=== PATIENT | male | born 1980 | race Caucasian/White ===

== ENCOUNTER 2022-10-27 09:57 | Inpatient (IN) ==
[2022-10-27] MEDS ORDERED: ACETAMINOPHEN 325 MG TAB PO PRN (10:13)
[2022-10-27] MEDS ORDERED: ONDANSETRON INJ 2 MG/ML 2 ML VIAL IV PRN (10:13)
--- NOTE | 2022-10-27 10:47 | History & Physical Report ---
Date of Service October 27, 2022 Assessment & Plan (1) Ulcerative colitis: (2) Vitamin D deficiency: Plan This is a 42-year-old male with PMH of ulcerative colitis on Entyvio (last received 09/21/22) who presents as a direct admission for UC flare. Ulcerative colitis flare Worsening UC symptoms over past 1-2 weeks including increased frequency of bloodly bowel movements and abd cramping despite prednisone taper Has been on Entyvio biologic treatment that has worked well until recently, per patient Tachycardic at 100 bpm on admission, WBC 12, hgb 14.8, plt 510, ESR 59, CRP and CMP pending Evaluated by GI concurrently - plan for IV Solu-medrol 20mg IV q8H, planning to transition to new biologic and outpatient scope next week. Diet as tolerated Will add LR gentle fluids if BP tolerates Vitamin D deficiency Recently dx as outpatient and started on weekly 50,000u capsules x 3 months DVT Ppx: SCDs Code status: FULL PCP: Hailee Dispo: Admitted to PCU, can transition to lower level of care tomorrow if appropriate Patient seen in collaboration with Dr. Bay. Please see addendum. I spent a total of 75 minutes coordinating, documenting, and providing care for this patient excluding time spent in the performance of separately billed services. History of Present Illness Chief Complaint: UC flare Primary Care Provider: Franky Stephen MD This is a 42-year-old male with PMH of ulcerative colitis on Entyvio (last received 09/21/22) who presents as a direct admission for UC flare. Patient with worsening UC symptoms over the past week or 2 despite prednisone taper and mesalamine enemas. CRP elevated at 83 on 10/23/22 and at that time patient experiencing up to 12 bloody bowel movements overnight with increased frequency and urgency from baseline with associated abdominal cramping. CRP downtrended to 49 on 10/26/22 after starting prednisone taper but still experiencing symptoms than baseline. Coordinated direct admission with GI office and Dr. Farnsworth for IV steroid treatment. Denies any fever or chills. No lightheadedness, dizziness, chest pain, shortness of breath, nausea, vomiting, dysuria. Only had 1 bloody bowel movement overnight, still feels like he is trending in the right direction. Recently noted to have low vitamin D levels and started on high dose weekly supplements x 3 months. Allergies Allergy/AdvReac Type Severity Reaction Status Date / Time Penicillins Allergy Intermediate hives Verified 10/08/13 00:44 Home Medications Medication Instructions Recorded Confirmed Type azelastine 137 mcg (0.1 %) nasal 1 spray intranasal BID PRN Allergy 10/27/22 10/27/22 History spray aerosol Symptoms ergocalciferol (vitamin D2) 1,250 50,000 unit PO WK 10/27/22 10/27/22 History mcg (50,000 unit) capsule fluticasone propionate 50 1 spray intranasal BID PRN Allergy 10/27/22 10/27/22 History mcg/actuation nasal Symptoms spray,suspension montelukast 10 mg tablet 10 mg PO DAILY 10/27/22 10/27/22 History prednisone 10 mg tablet 20 mg PO BID 10/27/22 10/27/22 History vedolizumab 300 mg intravenous 300 mg IV Q8WK 10/27/22 10/27/22 History solution (Entyvio) Past Med/Surg History Medical History (Updated 10/27/22 @ 12:59 by Dai Wall PA-C) Allergic rhinitis Immunosuppressed status Ulcerative colitis Vitamin D deficiency Surgical History (Updated 10/27/22 @ 12:59 by Dai Wall PA-C) H/O umbilical hernia repair Family History Other Hypertension Social History Smoking Status: Former smoker Hx Alcohol Use: No Hx Substance Use: Yes (Vapes marijuana occasionally, last 2 weeks ago) Last Used Substance Other:: Once a month Preferred Language: German Communication Ability: Effective 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 Physical Exam Physical Exam: Please see Dr. Bay's addendum for physical exam. Results & Data Results & Data Laboratory Results Short CBC 10/27/22 Range/Units 12:18 WBC 12.16 H (4.8-10.8) K/ul Hgb 14.8 (14.0-18.0) g/dl Hct 45.0 (42.0-52.0) % Plt Count 510 H (130-400) K/uL BMP 10/27/22 12:18 Sodium 137 Potassium 3.7 Chloride 103 Carbon Dioxide 25 BUN 18 Creatinine 0.95 Glucose 150 H Calcium 9.4 Liver Function 10/27/22 Range/Units 12:18 Total Bilirubin 0.5 (0.2-1.0) mg/dl AST 14 (13-39) U/L ALT 36 (7-52) U/L Alkaline Phosphatase 83 (34-104) U/L Albumin 4.0 (3.4-5.0) gm/dl Diagnostic Findings Chest X-Ray 10/27/22 10:13 XR chest 1V portable CLINICAL HISTORY: admission COMPARISON STUDY: No previous studies for comparison. FINDINGS: Lung volumes are normal. Lungs are clear. There is no pneumothorax or pleural effusion. Borderline enlargement of the cardiac silhouette. Mediastinal contours are normal. There is no evidence for pulmonary edema. IMPRESSION: No acute cardiopulmonary findings. ACT 112: Negative or not required by law. Electronically signed by: Eugene Richter M.D. 10/27/2022 12:44 PM ECG Additional Comments: EKG reviewed, sinus rhythm with sinus arrhythmia at 90 bpm Code Status & VTE Plan VTE Prophylaxis Plan VTE Prophylaxis will be ordered: Yes Supervising Physician Co-Signing Physician Notes History and physical exam performed by me notable for 42-year-old male with history of ulcerative colitis on Entyvio who presents as a direct admission for UC flare. Has been having worsening symptoms recently especially in the last week. Reports bloody diarrhea, generalized abd pain. Symptoms worse at night. Recent elevated CRP and was started on prednisone outpatient. On exam, General: Well hydrated, no acute distress Eyes: PERRL, conjunctivae normal, not pale, anicteric sclerae, EOM intact bilaterally ENMT: External ear and nose normal, oropharynx normal Respiratory: Normal respiratory effort, no respiratory distress, lungs clear to auscultation, no crackles and no wheezes Cardiovascular: RRR S1 S2. no murmur Gastrointestinal (Abdomen): Abdomen is not distended, soft, non-tender to palpation, no guarding, no palpable hepatosplenomegaly, normal bowel sounds Musculoskeletal: No pedal edema Neurologic: Alert and oriented x 3, No focal weakness, sensation grossly intact Psychiatric: Euthymic affect Get admission labs: CMP, CBC Get CRP GI consult Start on IV solumedrol 20mg q8h per GI recs. Other plans as detailed by Dai Armijo PA-C
[2022-10-27] MEDS ORDERED: methylPREDNISolone 20 MG in SYRINGE 0 ML IV SCH (11:45)
--- NOTE | 2022-10-27 12:46 | XRay Report ---
XR chest 1V portable CLINICAL HISTORY: admission COMPARISON STUDY: No previous studies for comparison. FINDINGS: Lung volumes are normal. Lungs are clear. There is no pneumothorax or pleural effusion. Bor derline enlargement of the cardiac silhouette. Mediastinal contours are normal. There is no evidence for pulmonary edema. IMPRESSION: No acute cardiopulmonary findings. ACT 112: Negative or not required by law. Electronically signed by: Eugene Richter M.D. 10/27/2022 12:44 PM
[2022-10-27 12:47] LABS: Basophils # (auto) 0.07 K/uL (0-0.2); Basophils % (auto) 0.6 %; Eosinophils # (auto) 0.11 K/uL (0-0.50); Eosinophils % (auto) 0.9 %; Hemoglobin 14.8 g/dl (14.0-18.0); Immature Granulocytes % (auto) 0.8 %; Lymphocytes # (auto) 1.46 K/uL (1.2-3.4); Mean Corpuscular Hemoglobin 29.4 pg (25.0-34.0); Mean Corpuscular Hgb Conc 32.9 g/dL (32.0-36.0); Mean Corpuscular Volume 89.3 fL (80.0-100.0); Mean Platelet Volume 9.2 fL (9.4-12.4); Monocytes # (auto) 0.67 K/uL (0.11-0.59); Monocytes % (auto) 5.5 %; Neutrophils # (auto) 9.75 K/uL (1.40-6.50); Neutrophils % (auto) 80.2 %; Platelet Count 510 K/uL (130-400); RDW Standard Deviation 45.5 fL (36.4-46.3); Red Blood Count 5.04 M/uL (4.70-6.10); White Blood Count 12.16 K/ul (4.8-10.8)
--- NOTE | 2022-10-27 12:58 | Gastrointestinal Consultation ---
Date of Consultation October 27, 2022 Assessment & Plan (1) Ulcerative colitis: Plan Failed OP tx of UC flare. - Stool for C-diff, GI pathogens - Prednisone 20mg IV Q8hrs. - Low residual diet. - Would consider IP colonoscopy if does not significantly improve w IV steroids. - If responds well to steroids, would consider DC in 2 days and will continue OP GI f/u w Dr. Farnsworth who will consider initiation of other biologic/small molecule to bring UC to remission. Supervising Physician Co-Signing Physician Notes I interviewed and examined pt, reviewed chart and labs. Pt appears well, but persistent diarrhea on oral steroids after 4 days. His CRP is falling, albumin, preserved, hgb WNL. Please recheck CRP 48 hours, diet as tolerated, solumedrol as above. Please place pt on DVT prophylaxis with lovenox. History of Present Illness Reason for Consultation: UC flare Requesting Physician: Dai Wall PA-C Attending Physician: Jackie Bay MD History of Present Illness Ms. Tres Covington is a 42 yr old male pt of Dr. Stephen w a hx of GERD, UC managed by Dr. Farnsworth, maintained on Entyvio, in flare for the past month, on prednisone 40mg daily as an OP x 6 days, passing a bloody BM every few hrs for days, including frequent night time wakenings. OP labs showing significant flare (CRP 83 and fecal calprotectin 3780 - normal is <50). He has slight improvement in the past 24 hrs but continues w significant symptoms. On arrival WBC 12, ESR 60, CRP 6. Mildly tachycardic at 98/min, also hypertensive at 150/101. He is awake, alert, oriented and otherwise hemodynamically stable w/o electrolyte disturbances. His most recent colonoscopy was in June w Lehman 2 colitis in left colon. Lehman 0 in proximal colon except for small patch of active inflammation at HF. Diminutive polyp. Allergies Allergy/AdvReac Type Severity Reaction Status Date / Time Penicillins Allergy Intermediate hives Verified 10/08/13 00:44 Home Medications Medication Instructions Recorded Confirmed Type azelastine 137 mcg (0.1 %) nasal 1 spray intranasal BID PRN Allergy 10/27/22 10/27/22 History spray aerosol Symptoms ergocalciferol (vitamin D2) 1,250 50,000 unit PO WK 10/27/22 10/27/22 History mcg (50,000 unit) capsule fluticasone propionate 50 1 spray intranasal BID PRN Allergy 10/27/22 10/27/22 History mcg/actuation nasal Symptoms spray,suspension montelukast 10 mg tablet 10 mg PO DAILY 10/27/22 10/27/22 History prednisone 10 mg tablet 20 mg PO BID 10/27/22 10/27/22 History vedolizumab 300 mg intravenous 300 mg IV Q8WK 10/27/22 10/27/22 History solution (Entyvio) Patient History Medical History (Updated 10/27/22 @ 12:59 by Dai Wall PA-C) Allergic rhinitis Immunosuppressed status Ulcerative colitis Vitamin D deficiency Surgical History (Updated 10/27/22 @ 12:59 by Dai Wall PA-C) H/O umbilical hernia repair Family History Other Hypertension Social History Smoking Status: Former smoker Hx Alcohol Use: No Hx Substance Use: Yes (Vapes marijuana occasionally, last 2 weeks ago) Last Used Substance Other:: Once a month Preferred Language: Luxembourgish Communication Ability: Effective 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 Beliefs That Will Affect Care: None Current Living Situation: Family Other Information That Helps Us Care for You: No Feels Safe at Home: Yes Safety Concerns: Feels Safe At This Time Assistive Devices: None Review of Systems Review of Systems: ROS: Gen: Denies weakness, fevers, weight loss Eyes: No eye redness, or pain, no recent vision changes Resp: No SOB, no cough Cardio: No palpitations/irregular beats, no chest pain GI: Asd per HPI, otherwise (-) : Denies pain on urination Skin: No jaundice, itching or new rashes Physical Exam Constitutional: WD/WN, vitals as above Eyes: PERRL, conjunctivae normal, anicteric sclerae ENMT: external ear and nose normal, oropharynx normal Neck: trachea midline, no thyromegaly Respiratory: normal respiratory effort, lungs clear to auscultation Cardiovascular: HR 96/min, regular rhythm, no murmurs Gastrointestinal (Abdomen): normal bowel sounds, soft, nontender, no hepatosplenomegaly Musculoskeletal: no cyanosis or clubbing, extremities motor strength 5/5 Skin: no rashes, warm and dry Neurologic: PERRL, EOMI, accommodation nl, no face palsy, no dysarthria Psychiatric: A+Ox3, euthymic affect Lymphatic: no cervical or axillary lymphadenopathy Results & Data Vital Signs (Past 12 Hours) Vital Signs Pulse Pulse Resp BP BP Pulse Ox O2 Del Method 10/27/22 12:00 98 H 16 149/101 H 99 Room Air 10/27/22 11:49 91 H 15 155/106 H 99 Room Air 10/27/22 11:44 95 H 17 155/106 H 100 Room Air Laboratory Results WBC 12, Hb 14, Hct 43, Plts 510, Na 137, K 3.7, Cl 103, CO2 25, BUN 18, Cr 0.95, glucose 150. Diagnostic Findings CXR: No acute cardiopulmonary findings.
[2022-10-27 13:00] LABS: BUN Creatinine Ratio 18.9 (10-20); Bilirubin,Total 0.5 mg/dl (0.2-1.0); C Reactive Protein 6.09 mg/dl (0-0.5); Calcium 9.4 mg/dl (8.6-10.3); Creatinine Clr Calc Pharmacy 127.1 ml/min; Est GFR (African American) 115.6 ml/min; Est GFR (Non-African American) 99.7 ml/min; Globulin 4.1 gm/dl (2.5-4.0); Potassium 3.7 mmol/L (3.5-5.1); Total Protein 8.1 gm/dl (6.0-8.3)
[2022-10-27] MEDS ORDERED: FLUTICASONE PROPIONATE NA SPR 16 GM BTL NAE PRN (13:07)
[2022-10-27] MEDS: methylPREDNISolone 20 MG in SYRINGE 0 ML IV SCH ×2 (13:09→20:38)
--- NOTE | 2022-10-27 16:48 | Electrocardiogram Report ---
Test Reason : Blood Pressure : / mmHG Vent. Rate : 090 BPM Atrial Rate : 090 BPM P-R Int : 130 ms QRS Dur : 094 ms QT Int : 360 ms P-R-T Axes : 039 078 034 degrees QTc Int : 440 ms Normal sinus rhythm with sinus arrhythmia Normal ECG No previous ECGs available Confirmed by Lowell Call ([id number]) on 10/27/2022 4:48:39 PM Referred By: Cheyenne Farnsworth Confirmed By:Lowell Call
--- NOTE | 2022-10-27 22:40 | Communication Note ---
Date of Service: October 27, 2022 Patient noted to have elevated since admission. SBP 140s to 160s. AP Situational hypertension Possible chronic BP elevation given cardiomegaly on CXR Initiate lisinopril
[2022-10-28] MEDS: lisinopril 2.5 MG TAB PO SCH ×2 (00:14→20:12)
[2022-10-28] MEDS: methylPREDNISolone 20 MG in SYRINGE 0 ML IV SCH ×3 (04:01→20:12)
[2022-10-28 05:18] LABS: Hematocrit (blood only) 42.4 % (42.0-52.0); Mean Corpuscular Hemoglobin 29.5 pg (25.0-34.0); Mean Corpuscular Volume 89.5 fL (80.0-100.0); Mean Platelet Volume 8.9 fL (9.4-12.4); Platelet Count 476 K/uL (130-400); RDW Coefficient of Variation 13.7 % (11.5-14.5); RDW Standard Deviation 44.6 fL (36.4-46.3); Red Blood Count 4.74 M/uL (4.70-6.10); White Blood Count 12.52 K/ul (4.8-10.8)
[2022-10-28 05:34] LABS: BUN Creatinine Ratio 21.1 (10-20); Calcium 8.5 mg/dl (8.6-10.3); Creatinine Clr Calc Pharmacy 134.1 ml/min; Est GFR (African American) 123.4 ml/min; Est GFR (Non-African American) 106.5 ml/min; Potassium 4.3 mmol/L (3.5-5.1)
--- NOTE | 2022-10-28 09:41 | Gastroenterology Progress Note ---
Date of Service October 28, 2022 Assessment & Plan (1) Ulcerative colitis: Plan: He is doing better and probably close to going home. Would wait until later today or tomorrow depending on how he is doing. A few more IV doses might be beneficial to him and he would like to at least wait until dose later today. If he goes home I would send him home on 30 mg prednisone daily with quick follow up with his primary GI. Admission and Anticipated Discharge Date Admission Date: October 27, 2022 Subjective Doing "much better". Stools less frequent and less blood seen. Last BM last night. Sees a big difference with IV steroids Physical Exam Physical Exam: He looks well Results & Data Vital Signs (Past 12 Hours) Vital Signs Temp Pulse Pulse Resp BP BP Pulse Ox 10/28/22 08:00 111 H 10/28/22 07:24 36.7 C 97 H 18 137/77 97 10/28/22 04:00 36.8 C 79 19 125/74 97 10/28/22 00:00 70 10/27/22 23:53 91 H 23 10/27/22 23:53 137/78 10/27/22 23:00 60 15 10/27/22 22:00 70 16 10/27/22 23:00 36.9 C 85 16 95 O2 Del Method 10/28/22 08:00 10/28/22 07:24 Room Air 10/28/22 04:00 Room Air 10/28/22 00:00 10/27/22 23:53 10/27/22 23:53 10/27/22 23:00 10/27/22 22:00 10/27/22 23:00 Room Air
[2022-10-28] MEDS: MONTELUKAST SODIUM 10 MG TABLET PO SCH (09:45)
--- NOTE | 2022-10-28 15:28 | Hospitalist Progress Note ---
Date of Service October 28, 2022 Assessment & Plan (1) Ulcerative colitis: (2) Vitamin D deficiency: Plan: Patient is a 42 yr male with H/O Ulcerative colitis on Entyvio (last received 09/21/22) who presents as a direct admission for UC flare. Ulcerative colitis flare Failed outpatient treatment Stools negative for C Diff Was on Entyvio Continue Solu-Medrol Tolerating diet Appreciate GI input Monitor CBC We will recheck CRP tomorrow Vitamin D deficiency Recently dx as outpatient and started on weekly 50,000u capsules x 3 months DVT Px: SCDs Code status: FULL CODE Admission and Anticipated Discharge Date Admission Date: October 27, 2022 Subjective Patient is seen and examined at bedside Abdominal pain much improved Diarrhea improving as well Reports minimal blood in stools this morning Discussed with Dr. Farnsworth today Denies any chest pain, dyspnea, dizziness, nausea, vomiting Tolerating diet No other complaints Review of Systems Review of Systems: All systems reviewed & are unremarkable except as noted in Subjective Physical Exam Physical Exam: Physical Exam: Vitals signs as noted above General Appearance:Moderately built and nourished, no apparent distress Head: normocephalic, Atraumatic Eyes: normal inspection, EOMI Neck: supple, Trachea midline Respiratory/Chest: Normal breath sounds, CTA, No accessory muscle use Cardiovascular: S1, S2, No murmur Abdomen/GI:Soft, Non tender, Bowel sounds present Extremities/Musculoskeletal:normal inspection, no edema Neurologic/Psych:AAOX3, grossly no focal neurological deficits Skin: normal color, warm Results & Data Results & Data Vital Signs (Past 12 Hours) Vital Signs Temp Pulse Pulse Resp BP Pulse Ox O2 Del Method 10/28/22 14:37 87 10/28/22 11:17 36.9 C 80 18 120/78 96 Room Air 10/28/22 08:00 111 H 10/28/22 07:24 36.7 C 97 H 18 137/77 97 Room Air 10/28/22 04:00 36.8 C 79 19 125/74 97 Room Air Laboratory Results Short CBC 10/28/22 Range/Units 04:56 WBC 12.52 H (4.8-10.8) K/ul Hgb 14.0 (14.0-18.0) g/dl Hct 42.4 (42.0-52.0) % Plt Count 476 H (130-400) K/uL BMP 10/28/22 04:56 Sodium 137 Potassium 4.3 Chloride 103 Carbon Dioxide 28 BUN 19 Creatinine 0.90 Glucose 135 H Calcium 8.5 L
[2022-10-29] MEDS: methylPREDNISolone 20 MG in SYRINGE 0 ML IV SCH ×2 (04:01→12:13)
[2022-10-29 05:05] LABS: Hematocrit (blood only) 41.8 % (42.0-52.0); Hemoglobin 13.9 g/dl (14.0-18.0); Mean Corpuscular Hemoglobin 29.4 pg (25.0-34.0); Mean Corpuscular Hgb Conc 33.3 g/dL (32.0-36.0); Mean Corpuscular Volume 88.4 fL (80.0-100.0); Mean Platelet Volume 9.2 fL (9.4-12.4); Platelet Count 492 K/uL (130-400); Red Blood Count 4.73 M/uL (4.70-6.10); White Blood Count 14.82 K/ul (4.8-10.8)
[2022-10-29 05:20] LABS: BUN Creatinine Ratio 22.5 (10-20); C Reactive Protein 2.75 mg/dl (0-0.5); Calcium 8.6 mg/dl (8.6-10.3); Creatinine Clr Calc Pharmacy 171.7 ml/min; Est GFR (Non-African American) 117.4 ml/min; Magnesium 2.2 mg/dl (1.7-2.4); Potassium 4.3 mmol/L (3.5-5.1)
[2022-10-29] MEDS: MONTELUKAST SODIUM 10 MG TABLET PO SCH (08:56)
--- NOTE | 2022-10-29 12:31 | Hospitalist Progress Note ---
Date of Service October 29, 2022 Assessment & Plan (1) Ulcerative colitis: (2) Vitamin D deficiency: Plan: Patient is a 42 yr male with H/O Ulcerative colitis on Entyvio (last received 09/21/22) who presents as a direct admission for UC flare. Ulcerative colitis flare Failed outpatient treatment Stools negative for C Diff Was on Entyvio Continue Solu-Medrol Tolerating diet Appreciate GI input Monitor CBC CRP trending down Leukocytosis likely due to steroids Discussed with Dr. Farnsworth today: Plan to discharge on prednisone tapering course Vitamin D deficiency Recently dx as outpatient and started on weekly 50,000u capsules x 3 months DVT Px: SCDs Code status: FULL CODE Admission and Anticipated Discharge Date Admission Date: October 27, 2022 Subjective Patient is seen and examined at bedside Patient states having to bowel movements with minimal blood Also reports minimal abdominal discomfort but otherwise feels well Denies any nausea, vomiting, chest pain, dyspnea, dizziness Discussed with gastroenterology Dr. Farnsworth today Tolerating diet Patient prefers to be discharged home today Review of Systems Review of Systems: All systems reviewed & are unremarkable except as noted in Subjective Physical Exam Physical Exam: Physical Exam: Vitals signs as noted above General Appearance:Moderately built and nourished, no apparent distress Head: normocephalic, Atraumatic Eyes: normal inspection, EOMI Neck: supple, Trachea midline Respiratory/Chest: Normal breath sounds, CTA, No accessory muscle use Cardiovascular: S1, S2, No murmur Abdomen/GI:Soft, Non tender, Bowel sounds present Extremities/Musculoskeletal:normal inspection, no edema Neurologic/Psych:AAOX3, grossly no focal neurological deficits Skin: normal color, warm Results & Data Results & Data Vital Signs (Past 12 Hours) Vital Signs Temp Pulse Pulse Resp BP Pulse Ox O2 Del Method 10/29/22 11:56 36.6 C 68 17 131/74 96 Room Air 10/29/22 08:00 97 H 10/29/22 07:32 36.8 C 97 H 17 137/81 98 Room Air 10/29/22 03:00 36.8 C 63 18 128/70 97 Room Air Laboratory Results Short CBC 10/29/22 Range/Units 04:15 WBC 14.82 H (4.8-10.8) K/ul Hgb 13.9 L (14.0-18.0) g/dl Hct 41.8 L (42.0-52.0) % Plt Count 492 H (130-400) K/uL BMP 10/29/22 04:15 Sodium 137 Potassium 4.3 Chloride 104 Carbon Dioxide 26 BUN 16 Creatinine 0.71 Glucose 119 H Calcium 8.6
--- NOTE | 2022-10-29 12:52 | Discharge Summary ---
Date of Service October 29, 2022 Admission HPI Per Admitting Provider Chief Complaint: UC flare Primary Care Provider: Franky Stephen MD This is a 42-year-old male with PMH of ulcerative colitis on Entyvio (last received 09/21/22) who presents as a direct admission for UC flare. Patient with worsening UC symptoms over the past week or 2 despite prednisone taper and mesalamine enemas. CRP elevated at 83 on 10/23/22 and at that time patient experiencing up to 12 bloody bowel movements overnight with increased frequency and urgency from baseline with associated abdominal cramping. CRP downtrended to 49 on 10/26/22 after starting prednisone taper but still experiencing symptoms than baseline. Coordinated direct admission with GI office and Dr. Farnsworth for IV steroid treatment. Denies any fever or chills. No lightheadedness, dizziness, chest pain, shortness of breath, nausea, vomiting, dysuria. Only had 1 bloody bowel movement overnight, still feels like he is trending in the right direction. Recently noted to have low vitamin D levels and started on high dose weekly supplements x 3 months. Admission Exam Per Admitting Provider On exam, General: Well hydrated, no acute distress Eyes: PERRL, conjunctivae normal, not pale, anicteric sclerae, EOM intact bilaterally ENMT: External ear and nose normal, oropharynx normal Respiratory: Normal respiratory effort, no respiratory distress, lungs clear to auscultation, no crackles and no wheezes Cardiovascular: RRR S1 S2. no murmur Gastrointestinal (Abdomen): Abdomen is not distended, soft, non-tender to palpation, no guarding, no palpable hepatosplenomegaly, normal bowel sounds Musculoskeletal: No pedal edema Neurologic: Alert and oriented x 3, No focal weakness, sensation grossly intact Psychiatric: Euthymic affect Principal Diagnosis Ulcerative colitis flare Discharge Data Allergies Allergy/AdvReac Type Severity Reaction Status Date / Time Penicillins Allergy Intermediate hives Verified 10/08/13 00:44 Consultations 10/27/22 10:13 Consult Gastroenterology Routine Procedures Performed Laboratory Results WBC 14.82 K/ul (4.8-10.8) H 10/29/22 04:15 RBC 4.73 M/uL (4.70-6.10) 10/29/22 04:15 Hgb 13.9 g/dl (14.0-18.0) L 10/29/22 04:15 Hct 41.8 % (42.0-52.0) L 10/29/22 04:15 MCV 88.4 fL (80.0-100.0) 10/29/22 04:15 MCH 29.4 pg (25.0-34.0) 10/29/22 04:15 MCHC 33.3 g/dL (32.0-36.0) 10/29/22 04:15 RDW Std Deviation 45.0 fL (36.4-46.3) 10/29/22 04:15 RDW Coeff of Cira 14.0 % (11.5-14.5) 10/29/22 04:15 Plt Count 492 K/uL (130-400) H 10/29/22 04:15 MPV 9.2 fL (9.4-12.4) L 10/29/22 04:15 Immature Gran % (Auto) 0.8 % 10/27/22 12:18 Neut % (Auto) 80.2 % 10/27/22 12:18 Lymph % (Auto) 12.0 % 10/27/22 12:18 Hodgeman % (Auto) 5.5 % 10/27/22 12:18 Eos % (Auto) 0.9 % 10/27/22 12:18 Baso % (Auto) 0.6 % 10/27/22 12:18 Neut # (Auto) 9.75 K/uL (1.40-6.50) H 10/27/22 12:18 Lymph # (Auto) 1.46 K/uL (1.2-3.4) 10/27/22 12:18 Hodgeman # (Auto) 0.67 K/uL (0.11-0.59) H 10/27/22 12:18 Eos # (Auto) 0.11 K/uL (0-0.50) 10/27/22 12:18 Baso # (Auto) 0.07 K/uL (0-0.2) 10/27/22 12:18 Immature Gran # (Auto) 0.10 K/uL (0.01-0.20) 10/27/22 12:18 ESR 59 mm/hr (0-15) H 10/27/22 12:18 Sodium 137 mmol/L (136-145) 10/29/22 04:15 Potassium 4.3 mmol/L (3.5-5.1) 10/29/22 04:15 Chloride 104 mmol/L (98-107) 10/29/22 04:15 Carbon Dioxide 26 mmol/L (21-32) 10/29/22 04:15 Anion Gap 7 (3-11) 10/29/22 04:15 BUN 16 mg/dl (6-23) 10/29/22 04:15 Creatinine 0.71 mg/dl (0.6-1.4) 10/29/22 04:15 Est Cr Clr Drug Dosing 171.7 ml/min 10/29/22 04:15 Est GFR ( Amer) 136.0 ml/min 10/29/22 04:15 Est GFR (Non-Af Amer) 117.4 ml/min 10/29/22 04:15 BUN/Creatinine Ratio 22.5 (10-20) H 10/29/22 04:15 Glucose 119 mg/dl (70-99(Fasting)) H 10/29/22 04:15 Calcium 8.6 mg/dl (8.6-10.3) 10/29/22 04:15 Magnesium 2.2 mg/dl (1.7-2.4) 10/29/22 04:15 Total Bilirubin 0.5 mg/dl (0.2-1.0) 10/27/22 12:18 AST 14 U/L (13-39) 10/27/22 12:18 ALT 36 U/L (7-52) 10/27/22 12:18 Alkaline Phosphatase 83 U/L (34-104) 10/27/22 12:18 C-Reactive Protein 2.75 mg/dl (0-0.5) H 10/29/22 04:15 Total Protein 8.1 gm/dl (6.0-8.3) 10/27/22 12:18 Albumin 4.0 gm/dl (3.4-5.0) 10/27/22 12:18 Globulin 4.1 gm/dl (2.5-4.0) H 10/27/22 12:18 Albumin/Globulin Ratio 1.0 (0.9-2) 10/27/22 12:18 TSH 0.943 uIu/ml (0.300-4.500) 10/28/22 04:56 Nasal Screen MRSA (PCR) Negative (Negative) 10/27/22 12:26 Stl C. diff Tox B Gene Negative Cdiff Gene (Neg) 10/28/22 04:30 Impressions Chest X-Ray 10/27/22 10:13 XR chest 1V portable CLINICAL HISTORY: admission COMPARISON STUDY: No previous studies for comparison. FINDINGS: Lung volumes are normal. Lungs are clear. There is no pneumothorax or pleural effusion. Borderline enlargement of the cardiac silhouette. Mediastinal contours are normal. There is no evidence for pulmonary edema. IMPRESSION: No acute cardiopulmonary findings. ACT 112: Negative or not required by law. Electronically signed by: Eugene Richter M.D. 10/27/2022 12:44 PM Hospital Course (1) Ulcerative colitis: (2) Vitamin D deficiency: Patient is a 42 yr male with H/O Ulcerative colitis on Entyvio (last received 09/21/22) who presents as a direct admission for UC flare. Ulcerative colitis flare Failed outpatient treatment Stools negative for C Diff Was on Entyvio Continue Solu-Medrol Tolerating diet Appreciate GI input Monitor CBC CRP trending down Leukocytosis likely due to steroids Discussed with Dr. Farnsworth today: Plan to discharge on prednisone tapering course Vitamin D deficiency Recently dx as outpatient and started on weekly 50,000u capsules x 3 months DVT Px: SCDs Code status: FULL CODE Total Time Total Time Spent Total Time Spent (In Minutes): 56 minutes Discharge Plan Discharge Items Patient Disposition: Home - Self-Care Reason For Visit: ULCERATIVE COLITIS Discharge Diagnosis: Ulcerative colitis flare Activity: Per Instructions section Exercise/Sports: Gradually increase as tolerated Non-emergency contact: Primary Care Provider Call non-emergency contact if: you have any medication questions, your symptoms worsen, your pain is concerning for you and you have a fever Follow-up/Referrals: Franky Stephen MD [Primary Care Provider] - Diet: Heart Healthy Addtl Attending Provider Instructions: Follow-up with your primary care physician in 1 week as advised Follow-up with your insole department worker Dr. Farnsworth in 2-3 weeks -- Complete the prednisone tapering course as recommended by your insole department worker. Prednisone tapering course: Start taking prednisone 60 mg daily for 5 days, then take 50 mg daily for 5 days, then take 40 mg daily for 7 days, then 30 mg daily for 7 days, then 20 mg daily for 7 days, then 15 mg daily for 7 days, then 10 mg daily for 7 days, then 5 mg daily for 7 days then stop. Seek immediate medical attention if your symptoms reoccur or worsen Please take all medications as instructed on discharge list below. Please call if you have any questions or problems. You can reach a [facility] hospitalist on duty at [facility] 24 hours a day by calling [phone] Pending Studies at Discharge: No Stand-Alone Forms: My [facility], Smoking Cessation Medications and DC Order Prescriptions: New lisinopril 2.5 mg Tablet 2.5 mg PO HS Qty: 30 0RF Continued azelastine 137 mcg (0.1 %) aerosol,spray 1 spray INTRANASAL BID PRN (Reason: Allergy Symptoms) fluticasone propionate 50 mcg/actuation spray,suspension 1 spray INTRANASAL BID PRN (Reason: Allergy Symptoms) montelukast 10 mg tablet 10 mg PO DAILY Entyvio 300 mg Recon Soln 300 mg IV Q8WK ergocalciferol (vitamin D2) 1,250 mcg (50,000 unit) capsule 50,000 unit PO WK Changed prednisone 10 mg tablet 10 mg PO UD Qty: 60 0RF Rx Instructions: Start taking prednisone 60 mg daily for 5 days, then take 50 mg daily for 5 days, then take 40 mg daily for 7 days, then 30 mg daily for 7 days, then 20 mg daily for 7 days, then 15 mg daily for 7 days, then 10 mg daily for 7 days, then 5 mg daily for 7 days then stop. Discharge Orders: Discharge Order (Routine); Ordered 10/29/22 Ordered By: Pacheco Ascencio Admission Data Admit Date/Time: 10/27/22 11:31 Attending Provider: Pacheco Ascencio Admit Provider: Jackie [place] I. Primary Care Provider: Franky Stephen Other Providers: Cheyenne Farnsworth
== END 2022-10-29 13:30 | disposition home or self-care (01) | DRG 387 ==
LOC: SUATTDRO 11:31 → 1E 11:31 → 4W 10-28 06:20

== ENCOUNTER 2023-05-03 13:46 | Inpatient (IN) ==
[2023-05-03] MEDS ORDERED: ACETAMINOPHEN 325 MG TAB PO PRN (13:59)
[2023-05-03] MEDS ORDERED: ONDANSETRON INJ 2 MG/ML 2 ML VIAL IV PRN (13:59)
[2023-05-03] MEDS ORDERED: MoRPHine SULFATE 4 MG/ML 1 ML CARP\\VIAL IV PRN (13:59)
[2023-05-03] MEDS ORDERED: methylPREDNISolone 20 MG in SYRINGE 0 ML IV SCH ×2 (14:00→14:15)
[2023-05-03] MEDS: LACTATED RINGER'S 1,000 ML IV SCH (16:31)
--- NOTE | 2023-05-03 16:39 | History & Physical Report ---
Date of Service May 03, 2023 Assessment & Plan (1) Ulcerative colitis: Plan: This is a 42-year-old male with PMHx of ulcerative colitis on Entyvio. He was previously treated with Rinvoq, mesalamine and rowasa. Pt with worsening GI symptoms as outpatient prompted GI services to request a direct admission. - Admit to med surg for ulcerative colitis flare, allow clear liquid diet as tolerated, antiemetic prn, pain control with MS IV - Consult GI - possible colonoscopy tomorrow - Solumedrol 20 mg IV Q8H and hold on antibiotics at this time per Dr. Farnsworth - LR at 125 ml/hr - Will obtain CT abd/pelvis w/contrast pending Cr./BUN is stable. - Check labs including cbc, cmp, lipase, lactate, Blood cultures x 2 - Check EKG (2) Vitamin D deficiency: Plan: - Chronic, stable, continue supplementation (3) Allergic rhinitis: Plan: - Cont flonase as needed DVT ppx: teds, scds, no chemical anticoagulation in the setting of UC flare Lines: 2 PIV CODE: Full code Dispo: From home, likely to remain in the hospital x 2 days Admission and Anticipated Discharge Date Admission Date: May 03, 2023 History of Present Illness Chief Complaint: Abdominal pain, increased bowel movements Primary Care Provider: Franky Stephen MD This is a 42-year-old male with PMHx of ulcerative colitis on Entyvio. He is most recently treated with Rinvoq, mesalamine and rowasa. Pt thought treatment was working very well, and last Sunday thought he was trending towards remission, and then his symptoms started to worsen again. Complaints include nausea, loss of appetite, fatigue, abdominal cramping which began to worsen on Sunday night. Pt has had issues with watery and blackened stool, with blood noted with each bowel movement to varying degrees. He is having upwards of 10-12 BMs daily. He has been following with Dr. Farnsworth as outpatient, and was referred to the hospital for direct admission by GI for treatment with IV steroids. Currently patient is doing ok, he has abdominal pain but is comfortable. C/o a headache for which he can have a tylenol now. Allergies Allergy/AdvReac Type Severity Reaction Status Date / Time Penicillins Allergy Intermediate hives Verified 10/08/13 00:44 Home Medications Medication Instructions Recorded Confirmed Type azelastine 137 mcg (0.1 %) nasal 1 spray intranasal BID PRN Allergy 10/27/22 05/03/23 History spray aerosol Symptoms ergocalciferol (vitamin D2) 1,250 50,000 unit PO WK 10/27/22 05/03/23 History mcg (50,000 unit) capsule fluticasone propionate 50 1 spray intranasal BID PRN Allergy 10/27/22 05/03/23 History mcg/actuation nasal Symptoms spray,suspension montelukast 10 mg tablet 10 mg PO DAILY 10/27/22 05/03/23 History mesalamine 1,000 mg rectal 1,000 mg MT HS 05/03/23 05/03/23 History suppository mesalamine 4 gram/60 mL enema 4 g MT HS 05/03/23 05/03/23 History upadacitinib 30 mg tablet,extended 30 mg PO DAILY 05/03/23 05/03/23 History release 24 hr (Rinvoq) Past Med/Surg History Medical History (Updated 05/03/23 @ 16:55 by Sayda López PA-C) Allergic rhinitis Immunosuppressed status Ulcerative colitis Vitamin D deficiency Surgical History H/O umbilical hernia repair Family History Other Hypertension Social History Smoking Status: Former smoker Hx Alcohol Use: No Hx Substance Use: No Preferred Language: Indonesian Communication Ability: Effective 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 Beliefs That Will Affect Care: None Current Living Situation: Spouse and Family Other Information That Helps Us Care for You: No Feels Safe at Home: Yes Safety Concerns: Feels Safe At This Time Assistive Devices: None Review of Systems Review of Systems: Constitutional: No fever, +sweats and chills with associated abdomingal cramping Eyes: No diplopia, no worsening or blurred vision ENT: normal hearing, no trouble swallowing Respiratory: No cough, sputum, dyspnea at rest or on exertion Cardiovascular: No chest pain, tightness or palpitations Abdomen: As per HPI Musculoskeletal: No joint pain, calf pain, swelling Neurologic: No weakness, numbness/tingling, or balance problems Psychiatric: No anxiety or depression Skin: No rash or itch Physical Exam Physical Exam: General: awake, alert, no apparent distress Head: Normocephalic, atraumatic ENT: PERRL, EOMI, no pharyngeal exudate, mucous membranes moist Chest: Clear to auscultation, on room air, no adventitious breath sounds Cardiac: Regular rate and rhythm, no murmur, no JVD, normal peripheral pulses, good capillary refill Abdominal: NABS x 4 quadrants, soft, nondistended, +tender to palpation, no rebound or guarding Extremities: Normal inspection, no peripheral edema or erythema, calfs nontender to palpation Psych: Normal mood and affect Neuro: AAO x 3, strength intact bilaterally and rated 5/5, no motor deficits, speech is clear, no peripheral sensory deficits Results & Data Results & Data Vital Signs (Past 12 Hours) Vital Signs Temp Resp BP Pulse Ox O2 Del Method 05/03/23 15:30 37.0 C 16 148/97 H 96 Room Air Laboratory Results 05/03/23 15:38 Aerobic Blood Culture - Pending Blood Anaerobic Blood Culture - Pending 05/03/23 15:38 Aerobic Blood Culture - Pending Blood Anaerobic Blood Culture - Pending 05/03/23 05/03/23 15:38 15:38 Lactate 1.2 Lipase 25 Code Status & VTE Plan Code Status Full code Supervising Physician Co-Signing Physician Notes I have seen and discussed the case with the collaborating RAYMOND. I agree with the above H&P. I have reviewed and confirmed the patients medical history, the findings on physical examination, and the patients diagnosis and treatment plan with Maribel ANDRADE and agree with the information documented. In short, Mr. Covington is a 42 year old gentleman with history for UC who is a direct admission for a UC flare. Patient has history of flares, requiring multiple trials of various agents to dharmesh symptoms. GI following. VS with hypertension in 140s. Labs from admission pending, lactate negative. Patient stable, but with recurrent UC flare, GI discussed intermediate manager options. Plan for daily CRP, low fiber diet with NPO at midnight for flex sig in am, CT AP with contrast. Rest of mplan as above.
--- NOTE | 2023-05-03 17:07 | Gastrointestinal Consultation ---
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 Typically exac by stress, approximately 3-4 x a yr, episodes last 1 week. At the end of March 2007, pt had 2 weeks of diarrhea. Placed on pred 40/30/20/10 and Asacol 800; he completed pred taper with almost complete resolution of sx. Colonoscopy 04/2007: Colitis to splenic flexure, fishmouth IC valve, nl TI; bx with eos in TI, robbins colitis. SBFT 04/28: nl SBS IBD-7 04/28: Pos UC. Capsule 06/28: No Crohn's Had second flare requiring prednisone 03/30. Symptoms relapsed when pred stopped, c scopy 05/30 showed mod severe L sided colitis. Was then maintained on 6 MP 100 and Lialda 2.4g, and was in remission for some time. Mild flare in October 2010, occurred after holding Lialda and 6 MP for 10 days. Treated with Cortenemas. In Apr 2011, he again had mild flare that followed period of medication non- compliance, resumed with oral/topical 5ASA. In May 2011, he had mild flare that required Cortenemas for 1 month. In Jul 2011, He had mild flare that resolved with 5 ASA. He underwent c scopy in Aug 2011, which showed aphthous ileal ulcers, fishmouth IC valve, mod robbins colitis with rectal sparing; bx showed robbins-colitis and ileitis. He was told to resume 6 MP, but he did not take until end of December; by 03/2012, he was on 6 MP 100 mg. Seen in July 2012 for diarrhea that began after going off 6 MP and Lialda. Also described epigastric abdominal pain. Labs showed lipase of 808 and ALT 115, with normal bili and alk phos. He was placed on prednisone and 5ASA oral/topical. He underwent MRCP that was normal except for steatosis, and LFT's normalized and lipase improved. His symptoms resolved with pred taper; cause of pancreatitis was not clearly identified, but 5 ASA was held. In October 2012, had mild flare, resolved with resumption of oral topical 5ASA. In January 2013, had mild flare. Resolved with 2 weeks of cortenemas. His lipase continued to be elevated in the spring, but was subsequently normalized. 5ASA was held, but lipase did not rise with resumption of 5 ASA in October 2012. Began 6 MP 50 mg once daily in Feb 2013. Subsequently increased to 75 at end of Mar 2013, and to 100 at end of Apr 2013. In November 2013, 6 MP was decreased from 100 to 50 mg due to mildly increased LFT's. His CRP was also 19, although he was asymptomatic. In December 2013, while on 50 6 MP, his LFT's were normal; his CRP remained increased. In January, a fecal calprotectin was markedly increased. He began to have mild cramping and increased stool frequency in February, and a colonoscopoy in 2013 showed moderately severe robbins-colitis. His C diff was positive. He was started on prednisone and Vanco. He resumed 6 MP 100 mg on Mar 11, and he completed Vanco course and tapered off pred. In late Apr 2014, had recurrent diarrhea that was not responsive to cortenemas; his C diff was positive, and he was begun on Vanco, as well as oral pred with good initial response. In Aug 2014, had recurrent urgency and bleeding. His C diff was positive, and he was placed on Vanco with good response. He had recurrent symptoms in mid September; C diff was not repeated, he and was placed on extended Vanco Taper. In Mar 2015, he had mild bloating. He took Rowasa once daily for 30 days and symptoms resolved. Cscopy in May 2015 showed Mild colitis, most prominent in left colon, as well as mild Terminal ileitis. In Aug 2015, he had mild diarrhea that did progressed despite resuming Rowasa. He was placed first on Cortenemas, and then on oral prednisone; his C diff was neg. He continued on oral pred and cortenemas until october, when pred taper was completed. In December 2015 he has mild lingering symptoms. Bowel movements twice, stool is loose with scant blood and mild abd cramping. Taking LIalda 4 a day, 6 MP 100, ROwasa 4 x /week. He had cscopy which showed left sided colitis. 6 MP levels were not done. He began Humira in late December; 6 MP was discontinued in mid January. He had a mild flare in March 2016, and was given Coretenemas twice daily for about 6 weeks with improvement in his symptoms. He had a moderate flare in Jun 2016, requiring prednisone for resolution. Humira levels were low, and dose was increased to once weekly. He resumed 6 MP 50 in Jul 2016. He had a cscopy in Jul 2017 which showed no active endoscopic/histologic disease. He discontinued 6 MP in Jan 2018. Cscopy 01/2019 showed no evidence of active colitis; biopsies were normal. He had a moderate flare in 09/2019 which resolved with Cortenemas. Cscopy 11/2019 showed mild disease in rectum and sigmoid. Bx = mild to mod active colitis in desc, sigmoid, and rectum, neg CMV. Humira levels checkec - AB > 20, Humira level 6.5. Began ENtyvio in mid January 2020, 6 MP in early February 2020. Had Shingles in mid February. Csocpy 05/12 with endoscopic/histologic remission. 6 MP discontinued 04/2021. Entyvio trough Jul 2020 low, noantibody. Csocpy 07/13 with Lehman 2 colitis in left colon. Entyvio changed to q 6 mos. Calpro markedly elevated 12 weeks after Entyvio dose increase. Had flare refractory to oral steroids with markedly elevated CRP in 11/12. Cscopy showed Lehman 2 robbins-colitis. Briefly hospitalized, received 6 week steroid taper and began Rinvoq 45 BID on 11/04/22. He flared with step down in Rinvoq dose, and was placed on topicals steroids and then oral/topical 5 asa with apparent improvement. He now is on 30 mg of prednisone, and admitted for 5-6 days of intractable diarrhea, abdominal pain, and bleeding. His stool frequency is 10-12 x a day. He has no fever. + early am awakening with need to BM. No n/v, diminished appetite with slight wieght loss. PE: Appears comfortable, tired HEENT: mildly dry, no thrush CV: RRR Resp: CTA Abd: soft Labs pending - outpt labs = CRP is recently 75, hgb and albumin ok with labs showing hemoconcentration. A/P: UC, flare - IV solumedrol 60 qd. Daily CRP. R/o C diff. KUB. low residue diet as tolerated. Flex sig tomorrow. Discussed intermediate options for management of colitis = Rinvoq 45 as maintenance, infliximab trial. Discussed possibility of surgery. Allergies Allergy/AdvReac Type Severity Reaction Status Date / Time Penicillins Allergy Intermediate hives Verified 10/08/13 00:44 Home Medications Medication Instructions Recorded Confirmed Type azelastine 137 mcg (0.1 %) nasal 1 spray intranasal BID PRN Allergy 10/27/22 05/03/23 History spray aerosol Symptoms ergocalciferol (vitamin D2) 1,250 50,000 unit PO WK 10/27/22 05/03/23 History mcg (50,000 unit) capsule fluticasone propionate 50 1 spray intranasal BID PRN Allergy 10/27/22 05/03/23 History mcg/actuation nasal Symptoms spray,suspension montelukast 10 mg tablet 10 mg PO DAILY 10/27/22 05/03/23 History vedolizumab 300 mg intravenous 300 mg IV Q8WK 10/27/22 05/03/23 History solution (Entyvio) mesalamine 1,000 mg rectal 1,000 mg AZ HS 05/03/23 05/03/23 History suppository mesalamine 4 gram/60 mL enema 4 g AZ HS 05/03/23 05/03/23 History upadacitinib 30 mg tablet,extended 30 mg PO DAILY 05/03/23 05/03/23 History release 24 hr (Rinvoq) Patient History Medical History (Updated 05/03/23 @ 16:55 by Sayda López PA-C) Allergic rhinitis Immunosuppressed status Ulcerative colitis Vitamin D deficiency Surgical History H/O umbilical hernia repair Family History Other Hypertension Social History Smoking Status: Former smoker Hx Alcohol Use: No Hx Substance Use: No Preferred Language: Finnish Communication Ability: Effective 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
[2023-05-03] MEDS ORDERED: AZELASTINE HCL 0.1% NASAL 200 SPRAYS/27,400 MCG BTL PRN (17:43)
[2023-05-03] MEDS ORDERED: FLUTICASONE PROPIONATE NA SPR 16 GM BTL NAE PRN (17:43)
[2023-05-03 18:14] LABS: Hematocrit (blood only) 37.9 % (42.0-52.0); Hemoglobin 12.5 g/dl (14.0-18.0); Mean Corpuscular Hemoglobin 29.1 pg (25.0-34.0); Mean Corpuscular Volume 88.3 fL (80.0-100.0); Mean Platelet Volume 8.7 fL (9.4-12.4); Platelet Count 546 K/uL (130-400); RDW Coefficient of Variation 12.9 % (11.5-14.5); RDW Standard Deviation 41.8 fL (36.4-46.3); Red Blood Count 4.29 M/uL (4.70-6.10); White Blood Count 20.59 K/ul (4.8-10.8)
[2023-05-03] MEDS: methylPREDNISolone 20 MG in SYRINGE 0 ML IV SCH ×2 (18:17→21:05)
[2023-05-03 18:30] LABS: Albumin Globulin Ratio 1.1 (0.9-2); Albumin Level 3.9 gm/dl (3.4-5.0); BUN Creatinine Ratio 14.6 (10-20); Bilirubin,Total 0.3 mg/dl (0.2-1.0); C Reactive Protein 10.42 mg/dl (0-0.5); Creatinine Clr Calc Pharmacy 125.1 ml/min; Est GFR (African American) 114.1 ml/min; Est GFR (Non-African American) 98.5 ml/min; Globulin 3.5 gm/dl (2.5-4.0); Potassium 3.3 mmol/L (3.5-5.1); Total Protein 7.4 gm/dl (6.0-8.3)
[2023-05-03 18:34] LABS: Basophils # (auto) 0.07 K/uL (0.00-0.20); Basophils % (auto) 0.3 %; Eosinophils # (auto) 0.54 K/uL (0.00-0.50); Eosinophils % (auto) 2.6 %; Immature Granulocytes # (auto) 0.11 K/uL (0.01-0.20); Immature Granulocytes % (auto) 0.5 %; Lymphocytes # (auto) 1.52 K/uL (1.20-3.40); Lymphocytes % (auto) 7.4 %; Monocytes # (auto) 1.49 K/uL (0.11-0.59); Monocytes % (auto) 7.2 %; Neutrophils # (auto) 16.86 K/uL (1.40-6.50)
[2023-05-03] MEDS ORDERED: POTASSIUM CHLORIDE CRTAB 20 MEQ TABCR PO STA (18:39)
[2023-05-03] MEDS ORDERED: ERGOCALCIFEROL 50,000 UNITS 1250 MCG CAP PO SCH (21:00)
[2023-05-03] MEDS: MoRPHine SULFATE 4 MG/ML 1 ML CARP\\VIAL IV PRN (21:05)
[2023-05-03 22:35] LABS: Adenovirus F 40/41 PCR Not Detected (NotDetected); Astrovirus PCR Not Detected (NotDetected); Campylobacter PCR Not Detected (NotDetected); Cryptosporidium PCR Not Detected (NotDetected); Cyclospora cayetanensis PCR Not Detected (NotDetected); Entamoeba histolytica PCR Not Detected (NotDetected); Enteroaggregative E.coli(EAEC) Not Detected (NotDetected); Enteropathogenic E.coli (EPEC) Not Detected (NotDetected); Enterotoxigenic E.coli (ETEC) Not Detected (NotDetected); Giardia lamblia PCR Not Detected (NotDetected); Norovirus GI/GII PCR Not Detected (NotDetected); Plesiomonas shigelloides PCR Not Detected (NotDetected); Rotavirus A PCR Not Detected (NotDetected); Salmonella PCR Not Detected (NotDetected); Sapovirus PCR Not Detected (NotDetected); Shiga-like Toxin E.coli (STEC) Not Detected (NotDetected); Shigella/Enteroinvasive E.coli Not Detected (NotDetected); Vibrio cholerae PCR Not Detected (NotDetected); Vibrio species PCR Not Detected (NotDetected); Yersinia enterocolitica PCR Not Detected (NotDetected)
[2023-05-04] MEDS: LACTATED RINGER'S 1,000 ML IV SCH (04:52)
[2023-05-04] MEDS: methylPREDNISolone 20 MG in SYRINGE 0 ML IV SCH ×3 (05:47→21:42)
[2023-05-04] MEDS: MoRPHine SULFATE 4 MG/ML 1 ML CARP\\VIAL IV PRN (05:47)
--- NOTE | 2023-05-04 07:36 | XRay Report ---
KUB HISTORY: Abdominal distention. COMPARISON: Abdomen and pelvis CT 10/08/2013. FINDINGS: The lung bases are clear. There are few gas-filled loops of small bowel which are borderlin e dilated measuring up to 3 cm in diameter. There is gas within the nondistended colon. No renal anastasia culi. No ureteral calculi. Calcifications in the deep pelvis likely represent phleboliths. No pneumop eritoneum or pneumatosis. IMPRESSION: A few borderline dilated gas-filled loops of small bowel within the abdomen. This is nonspecific but could be seen in the setting of a mild ileus or partial small bowel obstruction. ACT 112: Negative or not required by law. Electronically signed by: Flaco David M.D. 05/04/2023 7:35 AM
[2023-05-04 07:44] LABS: Hematocrit (blood only) 37.8 % (42.0-52.0); Hemoglobin 12.6 g/dl (14.0-18.0); Mean Corpuscular Hemoglobin 29.1 pg (25.0-34.0); Mean Corpuscular Hgb Conc 33.3 g/dL (32.0-36.0); Mean Corpuscular Volume 87.3 fL (80.0-100.0); Mean Platelet Volume 8.6 fL (9.4-12.4); Platelet Count 537 K/uL (130-400); RDW Coefficient of Variation 12.8 % (11.5-14.5); RDW Standard Deviation 41.5 fL (36.4-46.3); Red Blood Count 4.33 M/uL (4.70-6.10); White Blood Count 16.04 K/ul (4.8-10.8)
[2023-05-04] MEDS: MONTELUKAST SODIUM 10 MG TABLET PO SCH (08:03)
[2023-05-04 08:08] LABS: Albumin Globulin Ratio 1.1 (0.9-2); Albumin Level 3.8 gm/dl (3.4-5.0); Bilirubin,Total 0.3 mg/dl (0.2-1.0); C Reactive Protein 12.48 mg/dl (0-0.5); Calcium 9.2 mg/dl (8.6-10.3); Creatinine Clr Calc Pharmacy 158.5 ml/min; Est GFR (African American) 132.1 ml/min; Est GFR (Non-African American) 113.9 ml/min; Globulin 3.5 gm/dl (2.5-4.0); Magnesium 1.8 mg/dl (1.7-2.4); Total Protein 7.3 gm/dl (6.0-8.3)
--- NOTE | 2023-05-04 08:41 | Anesthesiology Consultation ---
Date of Service May 04, 2023 History Surgery Operation Date: 05/04/23 16:30 Proposed Procedures p Flexible Sigmoidoscopy Dr Mares - Betty Mares MD Height/Weight Height: 6 ft Weight: 99.79 kg Allergies Allergy/AdvReac Type Severity Reaction Status Date / Time Penicillins Allergy Intermediate hives Verified 10/08/13 00:44 Medications Home Medications Medication Instructions Recorded Confirmed Last Taken azelastine 137 mcg (0.1 %) nasal 1 spray intranasal BID PRN Allergy 10/27/22 05/03/23 Unknown spray aerosol Symptoms ergocalciferol (vitamin D2) 1,250 50,000 unit PO WK 10/27/22 05/03/23 Unknown mcg (50,000 unit) capsule fluticasone propionate 50 1 spray intranasal BID PRN Allergy 10/27/22 05/03/23 Unknown mcg/actuation nasal Symptoms spray,suspension montelukast 10 mg tablet 10 mg PO DAILY 10/27/22 05/03/23 10/27/22 0900 mesalamine 1,000 mg rectal 1,000 mg HI HS 05/03/23 05/03/23 Unknown suppository mesalamine 4 gram/60 mL enema 4 g HI HS 05/03/23 05/03/23 Unknown upadacitinib 30 mg tablet,extended 30 mg PO DAILY 05/03/23 05/03/23 Unknown release 24 hr (Rinvoq) Active Medications Generic Name Dose Route Start Last Admin Trade Name Freq PRN Reason Stop Dose Admin Acetaminophen 650 mg 05/03/23 13:59 05/03/23 17:25 Acetaminophen 325 Mg Tab PO 06/02/23 13:58 650 mg Q4H PRN Administration Moderate Pain (Scale 4, 5, 6) Ergocalciferol 50,000 units 05/03/23 21:00 05/03/23 20:04 Ergocalciferol 50,000 Units 1250 Mcg Cap PO 06/02/23 20:59 50,000 units Q7D@2100 JUDY Administration Lactated Ringer's 1,000 mls @ 80 mls/hr 05/03/23 14:00 05/04/23 04:52 Lr IV 06/02/23 13:59 80 mls/hr .[id number] JUDY Administration Methylprednisolone 20 mg/ 0.32 mls @ 1.5 mls/min 05/03/23 18:00 05/04/23 05:47 Syringe IV 06/02/23 17:59 1.5 mls/min Q8 JUDY Administration Montelukast Sodium 10 mg 05/04/23 09:00 05/04/23 08:03 Montelukast Sodium 10 Mg Tablet PO 06/03/23 08:59 10 mg DAILY JUDY Administration Morphine Sulfate 4 mg 05/03/23 19:33 05/04/23 05:47 Morphine Sulfate 4 Mg/Ml 1 Ml Carp\Vial IV 05/17/23 13:58 4 mg Q3H PRN Administration Pain Past Medical History Medical History (Updated 05/03/23 @ 16:55 by Sayda López PA-C) Allergic rhinitis Immunosuppressed status Ulcerative colitis Vitamin D deficiency Past Family History Family History Other Hypertension Past Surgical History Surgical History H/O umbilical hernia repair Social History Smoking Status: Former smoker Hx Alcohol Use: No Hx Substance Use: No substance use type: marijuana Last Used Substance Other:: Once a month Physical Exam Vital Signs Last Vital Signs Temp 36.7 C 05/04/23 07:02 Pulse 69 05/04/23 07:02 Resp 17 05/04/23 07:02 BP 108/63 05/04/23 07:02 Pulse Ox 97 05/04/23 07:02 O2 Del Method Room Air 05/04/23 07:02 Testing Laboratory Results 05/04/23 07:13 05/04/23 07:13 Electrocardiogram Date: 05/04/[address] ROUTINE RETRIEVAL Normal sinus rhythm Normal ECG When compared with ECG of 27-OCT-2022 11:51, No significant change was found 25mm/s10mm/[id number] 241 HDCID: 3Referred by: Danielle Kiser Unconfirmed Vent. rate 69 BPM HI interval 126 ms QRS duration 96 ms QT/QTc 386/413 ms
--- NOTE | 2023-05-04 08:45 | Anesthesiology Consultation ---
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 Consults Requested none Proposed Anesthesia Anesthesia Type: MAC History Surgery Operation Date: 05/04/23 16:30 Proposed Procedures p Flexible Sigmoidoscopy Dr Mares - Betty Mares MD Height/Weight Height: 6 ft Weight: 99.79 kg Allergies Allergy/AdvReac Type Severity Reaction Status Date / Time Penicillins Allergy Intermediate hives Verified 10/08/13 00:44 Medications Home Medications Medication Instructions Recorded Confirmed Last Taken azelastine 137 mcg (0.1 %) nasal 1 spray intranasal BID PRN Allergy 10/27/22 05/03/23 Unknown spray aerosol Symptoms ergocalciferol (vitamin D2) 1,250 50,000 unit PO WK 10/27/22 05/03/23 Unknown mcg (50,000 unit) capsule fluticasone propionate 50 1 spray intranasal BID PRN Allergy 10/27/22 05/03/23 Unknown mcg/actuation nasal Symptoms spray,suspension montelukast 10 mg tablet 10 mg PO DAILY 10/27/22 05/03/23 10/27/22 0900 mesalamine 1,000 mg rectal 1,000 mg IA HS 05/03/23 05/03/23 Unknown suppository mesalamine 4 gram/60 mL enema 4 g IA HS 05/03/23 05/03/23 Unknown upadacitinib 30 mg tablet,extended 30 mg PO DAILY 05/03/23 05/03/23 Unknown release 24 hr (Rinvoq) Active Medications Generic Name Dose Route Start Last Admin Trade Name Freq PRN Reason Stop Dose Admin Acetaminophen 650 mg 05/03/23 13:59 05/03/23 17:25 Acetaminophen 325 Mg Tab PO 06/02/23 13:58 650 mg Q4H PRN Administration Moderate Pain (Scale 4, 5, 6) Ergocalciferol 50,000 units 05/03/23 21:00 05/03/23 20:04 Ergocalciferol 50,000 Units 1250 Mcg Cap PO 06/02/23 20:59 50,000 units Q7D@2100 JUDY Administration Lactated Ringer's 1,000 mls @ 80 mls/hr 05/03/23 14:00 05/04/23 04:52 Lr IV 06/02/23 13:59 80 mls/hr .[id number] JUDY Administration Methylprednisolone 20 mg/ 0.32 mls @ 1.5 mls/min 05/03/23 18:00 05/04/23 05:47 Syringe IV 06/02/23 17:59 1.5 mls/min Q8 JUDY Administration Montelukast Sodium 10 mg 05/04/23 09:00 05/04/23 08:03 Montelukast Sodium 10 Mg Tablet PO 06/03/23 08:59 10 mg DAILY JUDY Administration Morphine Sulfate 4 mg 05/03/23 19:33 05/04/23 05:47 Morphine Sulfate 4 Mg/Ml 1 Ml Carp\Vial IV 05/17/23 13:58 4 mg Q3H PRN Administration Pain Past Medical History Medical History (Updated 05/04/23 @ 08:46 by Abhishek Lassiter MD) Allergic rhinitis Encounter for pre-operative examination Immunosuppressed status Ulcerative colitis Vitamin D deficiency Past Family History Family History Other Hypertension Past Surgical History Surgical History H/O umbilical hernia repair Social History Smoking Status: Former smoker Hx Alcohol Use: No Hx Substance Use: No substance use type: marijuana Last Used Substance Other:: Once a month Physical Exam Vital Signs Last Vital Signs Temp 36.7 C 05/04/23 07:02 Pulse 69 05/04/23 07:02 Resp 17 05/04/23 07:02 BP 108/63 05/04/23 07:02 Pulse Ox 97 05/04/23 07:02 O2 Del Method Room Air 05/04/23 07:02 Testing Laboratory Results 05/04/23 07:13 05/04/23 07:13 Electrocardiogram Date: 05/04/2304-May-2023 06:01:01 [facility] [place] ROUTINE RETRIEVAL Normal sinus rhythm Normal ECG When compared with ECG of 27-OCT-2022 11:51, No significant change was found 25mm/s10mm/[id number] 241 HDCID: 3Referred by: [employer] Unconfirmed Vent. rate 69 BPM IA interval 126 ms QRS duration 96 ms QT/QTc 386/413 ms Chest X-Ray Date: 10/27/22 XR chest 1V portable CLINICAL HISTORY: admission COMPARISON STUDY: No previous studies for comparison. FINDINGS: Lung volumes are normal. Lungs are clear. There is no pneumothorax or pleural effusion. Borderline enlargement of the cardiac silhouette. Mediastinal contours are normal. There is no evidence for pulmonary edema. IMPRESSION: No acute cardiopulmonary findings.
--- NOTE | 2023-05-04 10:34 | History & Physical Bridge Note ---
Date of Service May 04, 2023 History & Physical Bridge Note I have examined the patient, reviewed the History & Physical and in the interval since the performance of the History & Physical I have noted the following changes of clinical significance: no changes noted Flex sig Patient was explained in detail regarding risks, benefits, limitations and alternatives of the above endoscopic procedure. Risks of intravenous sedation used for procedure were also explained. Risks include, but not limited to perfo ration, bleeding, infection, respiratory distress, cardiac arrest and . Patient is also aware about the possibility of missed lesion. Patient's questions were answered. The patient verbalized understanding the information and agreed to undergo the procedure.
[2023-05-04] MEDS ORDERED: LIDOCAINE 2% 2 ML VIAL/AMP(20MG/ML) INFIL ONE (10:47)
[2023-05-04] MEDS ORDERED: MIDAZOLAM HCL 1 MG/ML 2ML VIAL ONE (10:47)
[2023-05-04] MEDS ORDERED: ONDANSETRON INJ 2 MG/ML 2 ML VIAL ONE (10:48)
[2023-05-04] MEDS ORDERED: PROPOFOL IV EMULSION 10 MG/ML 20 ML VIAL IV ONE ×2 (10:48)
--- NOTE | 2023-05-04 11:38 | GI REPORT ---
Patient Name: Tres Covington Procedure Date: 05/04/2023 10:47 AM Date of : 1980 Admit Type: Inpatient Age: 43 Gender: Male Attending MD: Betty Mares MD, Procedure: Flexible Sigmoidoscopy Providers: Betty Mares MD Referring MD: Humberto Cooley Md, Cheyenne Farnsworth MD Indications: Follow-up of ulcerative colitis Medicines: Propofol per Anesthesia Complications: No immediate complications. Estimated Blood Loss: Estimated blood loss: none. Procedure: Pre-Anesthesia Assessment: - Prior to the procedure, a History and Physical was performed, and patient medications, allergies and sensitivities were reviewed. The patient's tolerance of previous anesthesia was reviewed. - The risks and benefits of the procedure and the sedation options and risks were discussed with the patient. All questions were answered and informed consent was obtained. - Patient identification and proposed procedure were verified prior to the procedure by the physician and the nurse. The procedure was verified in the procedure room. - Pre-procedure physical examination revealed no contraindications to sedation. After obtaining informed consent, the endoscope was passed under direct vision. Throughout the procedure, the patient's blood pressure, pulse, and oxygen saturations were monitored continuously. The Endoscope was introduced through the anus and advanced to the descending colon. The flexible sigmoidoscopy was accomplished without difficulty. The patient tolerated the procedure well. The quality of the bowel preparation was good. Findings: Inflammation characterized by adherent blood, altered vascularity, erythema, friability and shallow ulcerations was found in a continuous and circumferential pattern from the rectum to the left sided colon. The inflammation was graded as Lehman Score 3 (severe, with spontaneous bleeding, ulcerations). Biopsies were taken with a cold forceps for histology. Verification of patient identification for the specimen was done by the physician and nurse using the patient's name and date. Impression: - Ulcerative colitis graded as Lehman Score 3. Biopsied. Recommendation: - Return [facility] to [facility] for [facility]. - Continue Steroids. Betty Mares MD 05/04/2023 11:37:40 AM This report has been signed electronically. Note Initiated On: 05/04/2023 10:47 AM Number of Addenda: 0 I attest to the content of the Intraoperative Record and orders documented therein, exceptions below {[id number]}
--- NOTE | 2023-05-04 12:20 | Anesthesiology Progress Note ---
Date of Service May 04, 2023 Anesthesia Post Procedure Vital Signs Vital Signs: Temp Pulse Resp BP Pulse Ox O2 Del Method 05/04/23 11:31 64 16 110/66 96 Room Air 05/04/23 11:16 69 16 131/68 99 Room Air 05/04/23 11:01 74 16 122/67 99 Room Air 05/04/23 09:57 36.7 C 66 16 123/76 96 Room Air 05/04/23 07:02 36.7 C 69 17 108/63 97 Room Air 05/03/23 20:12 37.4 C 79 18 149/84 H 96 Room Air 05/03/23 15:30 37.0 C 16 148/97 H 96 Room Air Pain Intensity Abdomen: Pain Intensity: 3 Transfer of Care Handoff Completed per policy Notes Mental Status: alert / awake / arousable and participated in evaluation Patient Amnestic to Procedure: Yes Nausea / Vomiting: adequately controlled Pain: adequately controlled Airway Patency, RR, SpO2: stable & adequate BP & HR: stable & adequate Hydration State: stable & adequate Anesthetic Complications: no major complications apparent
--- NOTE | 2023-05-04 13:44 | Hospitalist Progress Note ---
Date of Service May 04, 2023 Assessment & Plan (1) Ulcerative colitis: Plan: This is a 42-year-old male with PMHx of ulcerative colitis on Entyvio. He was previously treated with Rinvoq, mesalamine and rowasa. Pt with worsening GI symptoms as outpatient prompted GI services to request a direct admission. Flexible sigmoidoscopy done on 03/04 shows loredo score 3 inflammation. Inflammation characterized by adherent blood, altered vascularity, erythema, friability and shallow ulcerations. Labs reviewed; WBC slightly down trended. Hemoglobin is stable around 12.5. CRP elevated to 12.48 GI PCR panel and C. difficile negative -Continue on Solumedrol 20 mg IV Q8H -Monitor symptoms -Low residue diet (2) Vitamin D deficiency: Plan: - Chronic, stable, continue supplementation (3) Allergic rhinitis: Plan: - Cont flonase as needed DVT ppx: teds, scds, no chemical anticoagulation in the setting of UC flare Lines: 2 PIV CODE: Full code Dispo: From home, likely to remain in the hospital x 2 days Please note the above document was generated using voice recognition software. It may contain grammatical, syntax or spelling errors. Any formal questions or concerns about the content, text or information contained within the body of this dictation should be directly addressed to the provider for clarification Admission and Anticipated Discharge Date Admission Date: May 03, 2023 Subjective Patient seen and examined after sigmoidoscopy. He is sitting up on the bed; not in any distress. Review of Systems Review of Systems: All systems reviewed & are unremarkable except as noted in Subjective Physical Exam Physical Exam: Constitutional: Alert orient x3; not in any distress. Respiratory: normal respiratory effort, lungs clear to auscultation, no wheeze, rales, rhonchi. Normal insp/exp effort, no accessory muscle use Cardiovascular: RRR, no murmur, no edema Vessels: no JVD or carotid bruit Chest: normal inspection of chest Abdomen: Soft, nontender. Bowel sounds present. Musculoskeletal: no cyanosis or clubbing, extremities motor strength 5/5 Skin: no rashes, warm and dry normal turgor Neurologic: PERRL, EOMI, accommodation nl, no face palsy, no dysarthria CN's II- XI intact bilaterally and moves all extremities Psychiatric: A+Ox3, euthymic affect Results & Data Results & Data Vital Signs (Past 12 Hours) Vital Signs Temp Pulse Resp BP Pulse Ox O2 Del Method 05/04/23 11:31 64 16 110/66 96 Room Air 05/04/23 11:16 69 16 131/68 99 Room Air 05/04/23 11:01 74 16 122/67 99 Room Air 05/04/23 09:57 36.7 C 66 16 123/76 96 Room Air 05/04/23 07:02 36.7 C 69 17 108/63 97 Room Air Laboratory Results Laboratory Results WBC 16.04 K/ul (4.8-10.8) H 05/04/23 07:13 RBC 4.33 M/uL (4.70-6.10) L 05/04/23 07:13 Hgb 12.6 g/dl (14.0-18.0) L 05/04/23 07:13 Hct 37.8 % (42.0-52.0) L 05/04/23 07:13 MCV 87.3 fL (80.0-100.0) 05/04/23 07:13 MCH 29.1 pg (25.0-34.0) 05/04/23 07:13 MCHC 33.3 g/dL (32.0-36.0) 05/04/23 07:13 RDW Std Deviation 41.5 fL (36.4-46.3) 05/04/23 07:13 RDW Coeff of Cira 12.8 % (11.5-14.5) 05/04/23 07:13 Plt Count 537 K/uL (130-400) H 05/04/23 07:13 MPV 8.6 fL (9.4-12.4) L 05/04/23 07:13 Immature Gran % (Auto) 0.5 % 05/03/23 17:48 Neut % (Auto) 82.0 % 05/03/23 17:48 Lymph % (Auto) 7.4 % 05/03/23 17:48 Moca % (Auto) 7.2 % 05/03/23 17:48 Eos % (Auto) 2.6 % 05/03/23 17:48 Baso % (Auto) 0.3 % 05/03/23 17:48 Neut # (Auto) 16.86 K/uL (1.40-6.50) H 05/03/23 17:48 Lymph # (Auto) 1.52 K/uL (1.20-3.40) 05/03/23 17:48 Moca # (Auto) 1.49 K/uL (0.11-0.59) H 05/03/23 17:48 Eos # (Auto) 0.54 K/uL (0.00-0.50) H 05/03/23 17:48 Baso # (Auto) 0.07 K/uL (0.00-0.20) 05/03/23 17:48 Immature Gran # (Auto) 0.11 K/uL (0.01-0.20) 05/03/23 17:48 Sodium 137 mmol/L (136-145) 05/04/23 07:13 Potassium 4.0 mmol/L (3.5-5.1) D 05/04/23 07:13 Chloride 106 mmol/L (98-107) 05/04/23 07:13 Carbon Dioxide 25 mmol/L (21-32) 05/04/23 07:13 Anion Gap 6 (3-11) 05/04/23 07:13 BUN 9 mg/dl (6-23) 05/04/23 07:13 Creatinine 0.75 mg/dl (0.6-1.4) 05/04/23 07:13 Est Cr Clr Drug Dosing 158.5 ml/min 05/04/23 07:13 Est GFR ( Amer) 132.1 ml/min 05/04/23 07:13 Est GFR (Non-Af Amer) 113.9 ml/min 05/04/23 07:13 BUN/Creatinine Ratio 12.0 (10-20) 05/04/23 07:13 Glucose 131 mg/dl (70-99(Fasting)) H 05/04/23 07:13 Lactate 1.2 mmol/L (0.4-2.0) 05/03/23 15:38 Calcium 9.2 mg/dl (8.6-10.3) 05/04/23 07:13 Magnesium 1.8 mg/dl (1.7-2.4) 05/04/23 07:13 Total Bilirubin 0.3 mg/dl (0.2-1.0) 05/04/23 07:13 AST 12 U/L (13-39) L 05/04/23 07:13 ALT 13 U/L (7-52) 05/04/23 07:13 Alkaline Phosphatase 56 U/L (34-104) 05/04/23 07:13 C-Reactive Protein 12.48 mg/dl (0-0.5) H 05/04/23 07:13 Total Protein 7.3 gm/dl (6.0-8.3) 05/04/23 07:13 Albumin 3.8 gm/dl (3.4-5.0) 05/04/23 07:13 Globulin 3.5 gm/dl (2.5-4.0) 05/04/23 07:13 Albumin/Globulin Ratio 1.1 (0.9-2) 05/04/23 07:13 Lipase 25 U/L (11-82) 05/03/23 15:38 Stl C. cayetanensis PCR Not Detected (NotDetected) 05/03/23 20:50 Stool Rotavirus A PCR Not Detected (NotDetected) 05/03/23 20:50 Stl Adenov F 40/41 PCR Not Detected (NotDetected) 05/03/23 20:50 Stool Astrovirus (PCR) Not Detected (NotDetected) 05/03/23 20:50 Stool Campylobacter PCR Not Detected (NotDetected) 05/03/23 20:50 Stl C. diff Tox B Gene Negative Cdiff Gene (Neg) 05/03/23 20:50 Stool Cryptosporidium PCR Not Detected (NotDetected) 05/03/23 20:50 Stl E.coli Shiga Tox PCR Not Detected (NotDetected) 05/03/23 20:50 Stl Enterotoxigenic E PCR Not Detected (NotDetected) 05/03/23 20:50 Stool EPEC (PCR) Not Detected (NotDetected) 05/03/23 20:50 Stool EAEC (PCR) Not Detected (NotDetected) 05/03/23 20:50 Stl E. histolytica PCR Not Detected (NotDetected) 05/03/23 20:50 Stool Giardia Lamblia PCR Not Detected (NotDetected) 05/03/23 20:50 Stool Salmonella PCR Not Detected (NotDetected) 05/03/23 20:50 Stool Sapovirus (PCR) Not Detected (NotDetected) 05/03/23 20:50 Stl P. shigelloides PCR Not Detected (NotDetected) 05/03/23 20:50 Stl Shigella/EIEC PCR Not Detected (NotDetected) 05/03/23 20:50 St Y.enterocolitica PCR Not Detected (NotDetected) 05/03/23 20:50 Stool Vibrio (PCR) Not Detected (NotDetected) 05/03/23 20:50 Stl Vibrio cholerae PCR Not Detected (NotDetected) 05/03/23 20:50 Stl Norovirus GI/GII PCR Not Detected (NotDetected) 05/03/23 20:50 Impressions KUB X-Ray 05/03/23 18:36 KUB HISTORY: Abdominal distention. COMPARISON: Abdomen and pelvis CT 10/08/2013. FINDINGS: The lung bases are clear. There are few gas-filled loops of small bowel which are borderline dilated measuring up to 3 cm in diameter. There is gas within the nondistended colon. No renal calculi. No ureteral calculi. Calcifications in the deep pelvis likely represent phleboliths. No pneumoperitoneum or pneumatosis. IMPRESSION: A few borderline dilated gas-filled loops of small bowel within the abdomen. This is nonspecific but could be seen in the setting of a mild ileus or partial small bowel obstruction. ACT 112: Negative or not required by law. Electronically signed by: Flaco David M.D. 05/04/2023 7:35 AM
--- NOTE | 2023-05-04 14:52 | Electrocardiogram Report ---
Test Reason : Blood Pressure : / mmHG Vent. Rate : 069 BPM Atrial Rate : 069 BPM P-R Int : 126 ms QRS Dur : 096 ms QT Int : 386 ms P-R-T Axes : 042 075 045 degrees QTc Int : 413 ms Normal sinus rhythm Normal ECG When compared with ECG of 27-OCT-2022 11:51, No significant change was found Confirmed by Pierre Chandler ([id number]) on 05/04/2023 2:52:20 PM Referred By: Danielle Kiser Confirmed By:Pierre Chandler
--- NOTE | 2023-05-04 17:32 | Gastroenterology Progress Note ---
Date of Service May 04, 2023 Assessment & Plan Admission and Anticipated Discharge Date Admission Date: May 03, 2023 Subjective Pt with subjective improvement today - no diarrhea, improved energy. CRP increased today after hydration. Cont Solumedrol 60 over weekend, if cont to improve anticipate d/c on pred 60 + Rinvoq 30 on Sunday or Sunday. If CMV negative, plan to increase Rinvoq to 45 as maintenance. Results & Data Vital Signs (Past 12 Hours) Vital Signs Temp Pulse Resp BP Pulse Ox O2 Del Method 05/04/23 14:59 36.9 C 90 16 130/85 97 Room Air 05/04/23 11:31 64 16 110/66 96 Room Air 05/04/23 11:16 69 16 131/68 99 Room Air 05/04/23 11:01 74 16 122/67 99 Room Air 05/04/23 09:57 36.7 C 66 16 123/76 96 Room Air 05/04/23 07:02 36.7 C 69 17 108/63 97 Room Air
--- NOTE | 2023-05-04 18:06 | Hospitalist Progress Note ---
Date of Service May 04, 2023 Assessment & Plan (1) Ulcerative colitis: Plan: This is a 42-year-old male with PMHx of ulcerative colitis on Entyvio. He was previously treated with Rinvoq, mesalamine and rowasa. Pt with worsening GI symptoms as outpatient prompted GI services to request a direct admission. Flexible sigmoidoscopy 05/04 shows loredo score 3 inflammation. Inflammation characterized by adherent blood, altered vascularity, erythema, friability and shallow ulcerations (similar to February report) Continue on Solumedrol 20 mg IV Q8H Per GI, if cont to improve anticipate d/c on pred 60 + Rinvoq 30 on Sunday or Sunday. If CMV negative, plan to increase Rinvoq to 45 as maintenance Continue low residue diet Daily labs (2) Vitamin D deficiency: Plan: Chronic, stable, continue supplementation (3) Allergic rhinitis: Plan: Cont flonase as needed DVT ppx: teds, scds, no chemical anticoagulation in the setting of UC flare Lines: 2 PIV CODE: Full code Dispo: From home, likely to remain in the hospital x 2 days Admission and Anticipated Discharge Date Admission Date: May 03, 2023 Supervising Physician Co-Signing Physician Notes Patient seen and examined independently. Discussed with above provider. Continue on IV steroid for possible colitis flareup Possible transition to p.o. steroids in next few days after symptom control. Subjective Seen and examined in 375-2 today following endoscopy. Feeling much improved with IV steroids. Denies any diarrhea since procedure today (was having 8-10 episodes during flare prior to arrival). No other additional sx. No F/C, lightheadedness, CP, SOB, N/V, dysuria. Review of Systems Review of Systems: At least ten systems reviewed and negative except as noted in the HPI. Physical Exam Physical Exam: Gen: WD/WN, NAD, sitting up in bed working on computer, A&Ox3 HEENT: Normocephalic, atraumatic, conjunctivae moist, sclerae anicteric, mucous membranes moist Lung: Clear to Auscultation bilaterally, no wheezes/rales/rhonchi Heart: Regular rate, regular rhythm, no murmurs, rubs, or gallops Abdomen: Soft, mild distension and RLQ/LLQ TTP, +BS x 4 Extremities: no edema Skin: Warm, no rash Results & Data Results & Data Vital Signs (Past 12 Hours) Vital Signs Temp Pulse Resp BP Pulse Ox O2 Del Method 05/04/23 14:59 36.9 C 90 16 130/85 97 Room Air 05/04/23 11:31 64 16 110/66 96 Room Air 05/04/23 11:16 69 16 131/68 99 Room Air 05/04/23 11:01 74 16 122/67 99 Room Air 05/04/23 09:57 36.7 C 66 16 123/76 96 Room Air 05/04/23 07:02 36.7 C 69 17 108/63 97 Room Air Laboratory Results Short CBC 05/03/23 05/04/23 Range/Units 17:48 07:13 WBC 20.59 H 16.04 H (4.8-10.8) K/ul Hgb 12.5 L 12.6 L (14.0-18.0) g/dl Hct 37.9 L 37.8 L (42.0-52.0) % Plt Count 546 H 537 H (130-400) K/uL BMP 05/03/23 05/04/23 17:48 07:13 Sodium 137 137 Potassium 3.3 L 4.0 D Chloride 106 106 Carbon Dioxide 25 25 BUN 14 9 Creatinine 0.96 0.75 Glucose 117 H 131 H Calcium 9.0 9.2 Liver Function 05/03/23 05/04/23 Range/Units 17:48 07:13 Total Bilirubin 0.3 0.3 (0.2-1.0) mg/dl AST 14 12 L (13-39) U/L ALT 14 13 (7-52) U/L Alkaline Phosphatase 57 56 (34-104) U/L Albumin 3.9 3.8 (3.4-5.0) gm/dl Diagnostic Findings KUB X-Ray 05/03/23 18:36 KUB HISTORY: Abdominal distention. COMPARISON: Abdomen and pelvis CT 10/08/2013. FINDINGS: The lung bases are clear. There are few gas-filled loops of small bowel which are borderline dilated measuring up to 3 cm in diameter. There is gas within the nondistended colon. No renal calculi. No ureteral calculi. Calcifications in the deep pelvis likely represent phleboliths. No pneumoperitoneum or pneumatosis. IMPRESSION: A few borderline dilated gas-filled loops of small bowel within the abdomen. This is nonspecific but could be seen in the setting of a mild ileus or partial small bowel obstruction. ACT 112: Negative or not required by law. Electronically signed by: Flaco David M.D. 05/04/2023 7:35 AM
[2023-05-05] MEDS: methylPREDNISolone 20 MG in SYRINGE 0 ML IV SCH ×3 (05:48→21:11)
[2023-05-05 08:02] LABS: Basophils # (auto) 0.05 K/uL (0.00-0.20); Basophils % (auto) 0.3 %; Eosinophils # (auto) 0.02 K/uL (0.00-0.50); Eosinophils % (auto) 0.1 %; Hematocrit (blood only) 38.5 % (42.0-52.0); Hemoglobin 12.5 g/dl (14.0-18.0); Immature Granulocytes % (auto) 0.6 %; Lymphocytes # (auto) 0.96 K/uL (1.20-3.40); Lymphocytes % (auto) 5.4 %; Mean Corpuscular Hemoglobin 28.9 pg (25.0-34.0); Mean Corpuscular Hgb Conc 32.5 g/dL (32.0-36.0); Mean Corpuscular Volume 89.1 fL (80.0-100.0); Mean Platelet Volume 8.9 fL (9.4-12.4); Monocytes # (auto) 1.32 K/uL (0.11-0.59); Monocytes % (auto) 7.5 %; Neutrophils # (auto) 15.24 K/uL (1.40-6.50); Neutrophils % (auto) 86.1 %; Platelet Count 563 K/uL (130-400); RDW Coefficient of Variation 12.9 % (11.5-14.5); RDW Standard Deviation 42.4 fL (36.4-46.3); Red Blood Count 4.32 M/uL (4.70-6.10); White Blood Count 17.69 K/ul (4.8-10.8)
[2023-05-05 08:28] LABS: C Reactive Protein 8.56 mg/dl (0-0.5); Calcium 9.5 mg/dl (8.6-10.3); Creatinine Clr Calc Pharmacy 148.6 ml/min; Est GFR (African American) 128.6 ml/min; Potassium 4.1 mmol/L (3.5-5.1)
[2023-05-05] MEDS: MONTELUKAST SODIUM 10 MG TABLET PO SCH (08:47)
--- NOTE | 2023-05-05 09:22 | Gastroenterology Progress Note ---
Date of Service May 05, 2023 Assessment & Plan (1) Ulcerative colitis: Plan: Seems to be improving. Likely to go home tomorrow or Sunday but I think most likely Sunday. Admission and Anticipated Discharge Date Admission Date: May 03, 2023 Subjective Doing better. Pain and cramps are gone. Blood is less. Had three BM's so far today "just starting to get substance to them" Physical Exam Physical Exam: He looks well Constitutional: WD/WN, vitals as above Results & Data Vital Signs (Past 12 Hours) Vital Signs Temp Pulse Resp BP Pulse Ox O2 Del Method 05/05/23 07:30 36.6 C 63 16 132/83 96 Room Air
--- NOTE | 2023-05-05 13:55 | Hospitalist Progress Note ---
Date of Service May 05, 2023 Assessment & Plan (1) Ulcerative colitis: Plan: This is a 42-year-old male with PMHx of ulcerative colitis on Entyvio. He was previously treated with Rinvoq, mesalamine and rowasa. Pt with worsening GI symptoms as outpatient prompted GI services to request a direct admission. Flexible sigmoidoscopy 05/04 shows loredo score 3 inflammation. Inflammation characterized by adherent blood, altered vascularity, erythema, friability and shallow ulcerations (similar to February report) Continue on Solumedrol 20 mg IV Q8H Per GI, if cont to improve anticipate d/c on pred 60 + Rinvoq 30 in next few days. If CMV negative, plan to increase Rinvoq to 45 as maintenance Continue low residue diet Daily CBC, CRP. Slight improvement in the CRP noted today. (2) Vitamin D deficiency: Plan: Chronic, stable, continue supplementation (3) Allergic rhinitis: Plan: Cont flonase as needed DVT ppx: teds, scds, Lines: 2 PIV CODE: Full code Dispo: From home, likely to remain in the hospital x 2 days. Continues to be hospitalized due to severe ulcerative colitis flare-up. Please note the above document was generated using voice recognition software. It may contain grammatical, syntax or spelling errors. Any formal questions or concerns about the content, text or information contained within the body of this dictation should be directly addressed to the provider for clarification Admission and Anticipated Discharge Date Admission Date: May 03, 2023 Subjective Patient seen and examined at bedside. He is comfortably sitting up on the bed; not in distress. 2 bowel movements so far; slightly formed. Review of Systems Review of Systems: All systems reviewed & are unremarkable except as noted in Subjective Physical Exam Physical Exam: Constitutional: Alert orient x3; not in any distress. Respiratory: normal respiratory effort, lungs clear to auscultation, no wheeze, rales, rhonchi. Normal insp/exp effort, no accessory muscle use Cardiovascular: RRR, no murmur, no edema Vessels: no JVD or carotid bruit Chest: normal inspection of chest Abdomen: Soft, nontender. Bowel sounds present. Musculoskeletal: no cyanosis or clubbing, extremities motor strength 5/5 Skin: no rashes, warm and dry normal turgor Neurologic: PERRL, EOMI, accommodation nl, no face palsy, no dysarthria CN's II- XI intact bilaterally and moves all extremities Psychiatric: A+Ox3, euthymic affect Results & Data Results & Data Vital Signs (Past 12 Hours) Vital Signs Temp Pulse Resp BP Pulse Ox O2 Del Method 05/05/23 07:30 36.6 C 63 16 132/83 96 Room Air Laboratory Results Laboratory Results WBC 17.69 K/ul (4.8-10.8) H 05/05/23 07:11 RBC 4.32 M/uL (4.70-6.10) L 05/05/23 07:11 Hgb 12.5 g/dl (14.0-18.0) L 05/05/23 07:11 Hct 38.5 % (42.0-52.0) L 05/05/23 07:11 MCV 89.1 fL (80.0-100.0) 05/05/23 07:11 MCH 28.9 pg (25.0-34.0) 05/05/23 07:11 MCHC 32.5 g/dL (32.0-36.0) 05/05/23 07:11 RDW Std Deviation 42.4 fL (36.4-46.3) 05/05/23 07:11 RDW Coeff of Cira 12.9 % (11.5-14.5) 05/05/23 07:11 Plt Count 563 K/uL (130-400) H 05/05/23 07:11 MPV 8.9 fL (9.4-12.4) L 05/05/23 07:11 Immature Gran % (Auto) 0.6 % 05/05/23 07:11 Neut % (Auto) 86.1 % 05/05/23 07:11 Lymph % (Auto) 5.4 % 05/05/23 07:11 [place] % (Auto) 7.5 % 05/05/23 07:11 Eos % (Auto) 0.1 % 05/05/23 07:11 Baso % (Auto) 0.3 % 05/05/23 07:11 Neut # (Auto) 15.24 K/uL (1.40-6.50) H 05/05/23 07:11 Lymph # (Auto) 0.96 K/uL (1.20-3.40) L 05/05/23 07:11 [place] # (Auto) 1.32 K/uL (0.11-0.59) H 05/05/23 07:11 Eos # (Auto) 0.02 K/uL (0.00-0.50) 05/05/23 07:11 Baso # (Auto) 0.05 K/uL (0.00-0.20) 05/05/23 07:11 Immature Gran # (Auto) 0.10 K/uL (0.01-0.20) 05/05/23 07:11 Sodium 141 mmol/L (136-145) 05/05/23 07:11 Potassium 4.1 mmol/L (3.5-5.1) 05/05/23 07:11 Chloride 106 mmol/L (98-107) 05/05/23 07:11 Carbon Dioxide 29 mmol/L (21-32) 05/05/23 07:11 Anion Gap 6 (3-11) 05/05/23 07:11 BUN 12 mg/dl (6-23) 05/05/23 07:11 Creatinine 0.80 mg/dl (0.6-1.4) 05/05/23 07:11 Est Cr Clr Drug Dosing 148.6 ml/min 05/05/23 07:11 Est GFR ( Amer) 128.6 ml/min 05/05/23 07:11 Est GFR (Non-Af Amer) 111.0 ml/min 05/05/23 07:11 BUN/Creatinine Ratio 15.0 (10-20) 05/05/23 07:11 Glucose 126 mg/dl (70-99(Fasting)) H 05/05/23 07:11 Lactate 1.2 mmol/L (0.4-2.0) 05/03/23 15:38 Calcium 9.5 mg/dl (8.6-10.3) 05/05/23 07:11 Magnesium 1.8 mg/dl (1.7-2.4) 05/04/23 07:13 Total Bilirubin 0.3 mg/dl (0.2-1.0) 05/04/23 07:13 AST 12 U/L (13-39) L 05/04/23 07:13 ALT 13 U/L (7-52) 05/04/23 07:13 Alkaline Phosphatase 56 U/L (34-104) 05/04/23 07:13 C-Reactive Protein 8.56 mg/dl (0-0.5) H 05/05/23 07:11 Total Protein 7.3 gm/dl (6.0-8.3) 05/04/23 07:13 Albumin 3.8 gm/dl (3.4-5.0) 05/04/23 07:13 Globulin 3.5 gm/dl (2.5-4.0) 05/04/23 07:13 Albumin/Globulin Ratio 1.1 (0.9-2) 05/04/23 07:13 Lipase 25 U/L (11-82) 05/03/23 15:38 Stl C. cayetanensis PCR Not Detected (NotDetected) 05/03/23 20:50 Stool Rotavirus A PCR Not Detected (NotDetected) 05/03/23 20:50 Stl Adenov F 40/41 PCR Not Detected (NotDetected) 05/03/23 20:50 Stool Astrovirus (PCR) Not Detected (NotDetected) 05/03/23 20:50 Stool Campylobacter PCR Not Detected (NotDetected) 05/03/23 20:50 Stl C. diff Tox B Gene Negative Cdiff Gene (Neg) 05/03/23 20:50 Stool Cryptosporidium PCR Not Detected (NotDetected) 05/03/23 20:50 Stl E.coli Shiga Tox PCR Not Detected (NotDetected) 05/03/23 20:50 Stl Enterotoxigenic E PCR Not Detected (NotDetected) 05/03/23 20:50 Stool EPEC (PCR) Not Detected (NotDetected) 05/03/23 20:50 Stool EAEC (PCR) Not Detected (NotDetected) 05/03/23 20:50 Stl E. histolytica PCR Not Detected (NotDetected) 05/03/23 20:50 Stool Giardia Lamblia PCR Not Detected (NotDetected) 10 20:50 Stool Salmonella PCR Not Detected (NotDetected) 05/03/23 20:50 Stool Sapovirus (PCR) Not Detected (NotDetected) 05/03/23 20:50 Stl P. shigelloides PCR Not Detected (NotDetected) 05/03/23 20:50 Stl Shigella/EIEC PCR Not Detected (NotDetected) 05/03/23 20:50 St Y.enterocolitica PCR Not Detected (NotDetected) 05/03/23 20:50 Stool Vibrio (PCR) Not Detected (NotDetected) 05/03/23 20:50 Stl Vibrio cholerae PCR Not Detected (NotDetected) 05/03/23 20:50 Stl Norovirus GI/GII PCR Not Detected (NotDetected) 05/03/23 20:50 Impressions KUB X-Ray 05/03/23 18:36 KUB HISTORY: Abdominal distention. COMPARISON: Abdomen and pelvis CT 10/08/2013. FINDINGS: The lung bases are clear. There are few gas-filled loops of small bowel which are borderline dilated measuring up to 3 cm in diameter. There is gas within the nondistended colon. No renal calculi. No ureteral calculi. Calcifications in the deep pelvis likely represent phleboliths. No pneumoperitoneum or pneumatosis. IMPRESSION: A few borderline dilated gas-filled loops of small bowel within the abdomen. This is nonspecific but could be seen in the setting of a mild ileus or partial small bowel obstruction. ACT 112: Negative or not required by law. Electronically signed by: Flaco David M.D. 05/04/2023 7:35 AM
[2023-05-05] MEDS ORDERED: MoRPHine SULFATE 4 MG/ML 1 ML CARP\\VIAL IV PRN (15:18)
[2023-05-05] MEDS: RINVOQ 30 MG PO SCH (15:46)
[2023-05-06] MEDS: methylPREDNISolone 20 MG in SYRINGE 0 ML IV SCH ×3 (06:34→21:50)
[2023-05-06 07:49] LABS: Basophils # (auto) 0.03 K/uL (0.00-0.20); Basophils % (auto) 0.2 %; Eosinophils # (auto) 0.02 K/uL (0.00-0.50); Eosinophils % (auto) 0.1 %; Hematocrit (blood only) 36.6 % (42.0-52.0); Hemoglobin 11.9 g/dl (14.0-18.0); Immature Granulocytes # (auto) 0.11 K/uL (0.01-0.20); Immature Granulocytes % (auto) 0.8 %; Lymphocytes # (auto) 1.44 K/uL (1.20-3.40); Mean Corpuscular Hgb Conc 32.5 g/dL (32.0-36.0); Mean Corpuscular Volume 89.1 fL (80.0-100.0); Mean Platelet Volume 9.2 fL (9.4-12.4); Monocytes # (auto) 1.27 K/uL (0.11-0.59); Monocytes % (auto) 8.8 %; Neutrophils % (auto) 80.1 %; Platelet Count 554 K/uL (130-400); RDW Coefficient of Variation 13.1 % (11.5-14.5); RDW Standard Deviation 42.8 fL (36.4-46.3); Red Blood Count 4.11 M/uL (4.70-6.10); White Blood Count 14.47 K/ul (4.8-10.8)
[2023-05-06 08:06] LABS: BUN Creatinine Ratio 18.9 (10-20); C Reactive Protein 4.06 mg/dl (0-0.5); Creatinine Clr Calc Pharmacy 160.7 ml/min; Est GFR (African American) 132.8 ml/min; Est GFR (Non-African American) 114.6 ml/min; Potassium 3.6 mmol/L (3.5-5.1)
[2023-05-06] MEDS: RINVOQ 30 MG PO SCH (08:30)
[2023-05-06] MEDS: MONTELUKAST SODIUM 10 MG TABLET PO SCH (08:30)
--- NOTE | 2023-05-06 09:13 | Gastroenterology Progress Note ---
Date of Service May 06, 2023 Assessment & Plan (1) Ulcerative colitis: Plan: Seems to be improving. Likely ready for discharge tomorrow Admission and Anticipated Discharge Date Admission Date: May 03, 2023 Subjective Feels "pretty good". One loose stool so far today. Limited blood. No pain Physical Exam Physical Exam: He looks well Constitutional: WD/WN, vitals as above
--- NOTE | 2023-05-06 12:43 | Hospitalist Progress Note ---
Date of Service May 06, 2023 Assessment & Plan (1) Ulcerative colitis: Plan: This is a 42-year-old male with PMHx of ulcerative colitis on Entyvio. He was previously treated with Rinvoq, mesalamine and rowasa. Pt with worsening GI symptoms as outpatient prompted GI services to request a direct admission. Flexible sigmoidoscopy 05/04 shows loredo score 3 inflammation. Inflammation characterized by adherent blood, altered vascularity, erythema, friability and shallow ulcerations (similar to February report) Continue on Solumedrol 20 mg IV Q8H Per GI, if cont to improve anticipate d/c on pred 60 + Rinvoq 30 in next few days. If CMV negative, plan to increase Rinvoq to 45 as maintenance Continue low residue diet Daily CBC, CRP. CRP down trended to 4 today.. (2) Vitamin D deficiency: Plan: Chronic, stable, continue supplementation (3) Allergic rhinitis: Plan: Cont flonase as needed DVT ppx: teds, scds, Lines: 2 PIV CODE: Full code Dispo: From home; continues to be hospitalized due to need for IV steroid for severe UC flare. Please note the above document was generated using voice recognition software. It may contain grammatical, syntax or spelling errors. Any formal questions or concerns about the content, text or information contained within the body of this dictation should be directly addressed to the provider for clarification Admission and Anticipated Discharge Date Admission Date: May 03, 2023 Subjective Patient seen and examined at bedside. He reports 1 loose bowel movement today. No abdominal pain. Review of Systems Review of Systems: All systems reviewed & are unremarkable except as noted in Subjective Physical Exam Physical Exam: Constitutional: Alert orient x3; not in any distress. Respiratory: normal respiratory effort, lungs clear to auscultation, no wheeze, rales, rhonchi. Normal insp/exp effort, no accessory muscle use Cardiovascular: RRR, no murmur, no edema Vessels: no JVD or carotid bruit Chest: normal inspection of chest Abdomen: Soft, nontender. Bowel sounds present. Musculoskeletal: no cyanosis or clubbing, extremities motor strength 5/5 Skin: no rashes, warm and dry normal turgor Neurologic: PERRL, EOMI, accommodation nl, no face palsy, no dysarthria CN's II- XI intact bilaterally and moves all extremities Psychiatric: A+Ox3, euthymic affect Results & Data Results & Data Vital Signs (Past 12 Hours) Vital Signs Temp Pulse Resp BP Pulse Ox O2 Del Method 05/06/23 08:00 36.7 C 78 16 142/78 H 97 Room Air Laboratory Results Laboratory Results WBC 14.47 K/ul (4.8-10.8) H 05/06/23 06:44 RBC 4.11 M/uL (4.70-6.10) L 05/06/23 06:44 Hgb 11.9 g/dl (14.0-18.0) L 05/06/23 06:44 Hct 36.6 % (42.0-52.0) L 05/06/23 06:44 MCV 89.1 fL (80.0-100.0) 05/06/23 06:44 MCH 29.0 pg (25.0-34.0) 05/06/23 06:44 MCHC 32.5 g/dL (32.0-36.0) 05/06/23 06:44 RDW Std Deviation 42.8 fL (36.4-46.3) 05/06/23 06:44 RDW Coeff of Cira 13.1 % (11.5-14.5) 05/06/23 06:44 Plt Count 554 K/uL (130-400) H 05/06/23 06:44 MPV 9.2 fL (9.4-12.4) L 05/06/23 06:44 Immature Gran % (Auto) 0.8 % 05/06/23 06:44 Neut % (Auto) 80.1 % 05/06/23 06:44 Lymph % (Auto) 10.0 % 05/06/23 06:44 [place] % (Auto) 8.8 % 05/06/23 06:44 Eos % (Auto) 0.1 % 05/06/23 06:44 Baso % (Auto) 0.2 % 05/06/23 06:44 Neut # (Auto) 11.60 K/uL (1.40-6.50) H 05/06/23 06:44 Lymph # (Auto) 1.44 K/uL (1.20-3.40) 05/06/23 06:44 [place] # (Auto) 1.27 K/uL (0.11-0.59) H 05/06/23 06:44 Eos # (Auto) 0.02 K/uL (0.00-0.50) 05/06/23 06:44 Baso # (Auto) 0.03 K/uL (0.00-0.20) 05/06/23 06:44 Immature Gran # (Auto) 0.11 K/uL (0.01-0.20) 05/06/23 06:44 Sodium 141 mmol/L (136-145) 05/06/23 06:44 Potassium 3.6 mmol/L (3.5-5.1) 05/06/23 06:44 Chloride 105 mmol/L (98-107) 05/06/23 06:44 Carbon Dioxide 30 mmol/L (21-32) 05/06/23 06:44 Anion Gap 6 (3-11) 05/06/23 06:44 BUN 14 mg/dl (6-23) 05/06/23 06:44 Creatinine 0.74 mg/dl (0.6-1.4) 05/06/23 06:44 Est Cr Clr Drug Dosing 160.7 ml/min 05/06/23 06:44 Est GFR ( Amer) 132.8 ml/min 05/06/23 06:44 Est GFR (Non-Af Amer) 114.6 ml/min 05/06/23 06:44 BUN/Creatinine Ratio 18.9 (10-20) 05/06/23 06:44 Glucose 102 mg/dl (70-99(Fasting)) H 05/06/23 06:44 Lactate 1.2 mmol/L (0.4-2.0) 05/03/23 15:38 Calcium 9.0 mg/dl (8.6-10.3) 05/06/23 06:44 Magnesium 1.8 mg/dl (1.7-2.4) 05/04/23 07:13 Total Bilirubin 0.3 mg/dl (0.2-1.0) 05/04/23 07:13 AST 12 U/L (13-39) L 05/04/23 07:13 ALT 13 U/L (7-52) 05/04/23 07:13 Alkaline Phosphatase 56 U/L (34-104) 05/04/23 07:13 C-Reactive Protein 4.06 mg/dl (0-0.5) H 05/06/23 06:44 Total Protein 7.3 gm/dl (6.0-8.3) 05/04/23 07:13 Albumin 3.8 gm/dl (3.4-5.0) 05/04/23 07:13 Globulin 3.5 gm/dl (2.5-4.0) 05/04/23 07:13 Albumin/Globulin Ratio 1.1 (0.9-2) 05/04/23 07:13 Lipase 25 U/L (11-82) 05/03/23 15:38 Stl C. cayetanensis PCR Not Detected (NotDetected) 05/03/23 20:50 Stool Rotavirus A PCR Not Detected (NotDetected) 05/03/23 20:50 Stl Adenov F 40/41 PCR Not Detected (NotDetected) 05/03/23 20:50 Stool Astrovirus (PCR) Not Detected (NotDetected) 05/03/23 20:50 Stool Campylobacter PCR Not Detected (NotDetected) 05/03/23 20:50 Stl C. diff Tox B Gene Negative Cdiff Gene (Neg) 10 20:50 Stool Cryptosporidium PCR Not Detected (NotDetected) 05/03/23 20:50 Stl E.coli Shiga Tox PCR Not Detected (NotDetected) 05/03/23 20:50 Stl Enterotoxigenic E PCR Not Detected (NotDetected) 05/03/23 20:50 Stool EPEC (PCR) Not Detected (NotDetected) 05/03/23 20:50 Stool EAEC (PCR) Not Detected (NotDetected) 05/03/23 20:50 Stl E. histolytica PCR Not Detected (NotDetected) 05/03/23 20:50 Stool Giardia Lamblia PCR Not Detected (NotDetected) 05/03/23 20:50 Stool Salmonella PCR Not Detected (NotDetected) 05/03/23 20:50 Stool Sapovirus (PCR) Not Detected (NotDetected) 05/03/23 20:50 Stl P. shigelloides PCR Not Detected (NotDetected) 05/03/23 20:50 Stl Shigella/EIEC PCR Not Detected (NotDetected) 05/03/23 20:50 St Y.enterocolitica PCR Not Detected (NotDetected) 05/03/23 20:50 Stool Vibrio (PCR) Not Detected (NotDetected) 05/03/23 20:50 Stl Vibrio cholerae PCR Not Detected (NotDetected) 05/03/23 20:50 Stl Norovirus GI/GII PCR Not Detected (NotDetected) 05/03/23 20:50 Impressions KUB X-Ray 05/03/23 18:36 KUB HISTORY: Abdominal distention. COMPARISON: Abdomen and pelvis CT 10/08/2013. FINDINGS: The lung bases are clear. There are few gas-filled loops of small bowel which are borderline dilated measuring up to 3 cm in diameter. There is gas within the nondistended colon. No renal calculi. No ureteral calculi. Calcifications in the deep pelvis likely represent phleboliths. No pneumoperitoneum or pneumatosis. IMPRESSION: A few borderline dilated gas-filled loops of small bowel within the abdomen. This is nonspecific but could be seen in the setting of a mild ileus or partial small bowel obstruction. ACT 112: Negative or not required by law. Electronically signed by: Flaco David M.D. 05/04/2023 7:35 AM
[2023-05-07] MEDS: methylPREDNISolone 20 MG in SYRINGE 0 ML IV SCH (06:40)
[2023-05-07 07:40] LABS: Basophils # (auto) 0.09 K/uL (0.00-0.20); Basophils % (auto) 0.5 %; Hematocrit (blood only) 39.4 % (42.0-52.0); Immature Granulocytes # (auto) 0.47 K/uL (0.01-0.20); Immature Granulocytes % (auto) 2.4 %; Lymphocytes # (auto) 2.13 K/uL (1.20-3.40); Lymphocytes % (auto) 10.8 %; Mean Corpuscular Hemoglobin 29.3 pg (25.0-34.0); Mean Corpuscular Volume 88.7 fL (80.0-100.0); Mean Platelet Volume 8.9 fL (9.4-12.4); Monocytes # (auto) 1.53 K/uL (0.11-0.59); Monocytes % (auto) 7.8 %; Neutrophils # (auto) 15.48 K/uL (1.40-6.50); Neutrophils % (auto) 78.5 %; Platelet Count 593 K/uL (130-400); RDW Coefficient of Variation 13.2 % (11.5-14.5); RDW Standard Deviation 43.1 fL (36.4-46.3); Red Blood Count 4.44 M/uL (4.70-6.10)
[2023-05-07] MEDS: MONTELUKAST SODIUM 10 MG TABLET PO SCH (07:50)
[2023-05-07] MEDS: RINVOQ 30 MG PO SCH (07:50)
[2023-05-07 07:57] LABS: BUN Creatinine Ratio 19.8 (10-20); C Reactive Protein 2.42 mg/dl (0-0.5); Calcium 9.4 mg/dl (8.6-10.3); Creatinine Clr Calc Pharmacy 146.8 ml/min; Est GFR (African American) 127.9 ml/min; Est GFR (Non-African American) 110.4 ml/min; Potassium 4.3 mmol/L (3.5-5.1)
--- NOTE | 2023-05-07 08:38 | Gastroenterology Progress Note ---
Date of Service May 07, 2023 Assessment & Plan (1) Ulcerative colitis: Plan: 43 year old male with UC admitted w/ flare, improving having semi-formed stools, pain free and tolerating PO intake. Can continue low residue diet as tolerated. Continue OP Rinvoq per Dr. Farnsworth Convert IV methylprednisolone to PO prednisone taper 60 mg prednisone once daily x 2 weeks, then decrease by 5 mg weekly Recall as needed. Thank you for allowing us to participate in the care of this patient. Please call with any acute changes, questions or concerns. Please see addendum below with additional recommendation from my supervising physician. Admission and Anticipated Discharge Date Admission Date: May 03, 2023 Supervising Physician Co-Signing Physician Notes I have personally seen and examined the patient with HERMANN Tapia. Her note reflects my exam and findings. I agree with her impression and plan. Doing better with current treatment. Can D/C after today's Rinvoq. Ryan Ramirez M.D. Subjective Feeling improved! Wants to go home. Moving semi-formed/formed stools 1-2 times daily. No further black stools. BRB is decreasing and is almost resolved. AM labs pending. Colon path pending. Review of Systems Review of Systems: All systems reviewed & are unremarkable except as noted in HPI & below Physical Exam Constitutional: WD/WN, vitals as above Respiratory: normal respiratory effort, lungs clear to auscultation Cardiovascular: Rate/Rhythm: regular rate and regular rhythm Gastrointestinal (Abdomen): normal bowel sounds, soft, nontender, no hepatosplenomegaly Skin: no rashes, warm and dry Results & Data Vital Signs (Past 12 Hours) Vital Signs Temp Pulse Pulse Resp BP BP Pulse Ox 05/07/23 07:23 36.6 C 74 14 144/83 H 97 05/06/23 22:17 36.5 C 75 16 116/69 95 O2 Del Method 05/07/23 07:23 Room Air 05/06/23 22:17 Room Air Laboratory Results 05/07/23 05/07/23 Range/Units 07:15 07:15 WBC 19.70 H (4.8-10.8) K/ul RBC 4.44 L (4.70-6.10) M/uL Hgb 13.0 L (14.0-18.0) g/dl Hct 39.4 L (42.0-52.0) % MCV 88.7 (80.0-100.0) fL MCH 29.3 (25.0-34.0) pg MCHC 33.0 (32.0-36.0) g/dL RDW Std Deviation 43.1 (36.4-46.3) fL RDW Coeff of Cira 13.2 (11.5-14.5) % Plt Count 593 H (130-400) K/uL MPV 8.9 L (9.4-12.4) fL Immature Gran % (Auto) 2.4 % Neut % (Auto) 78.5 % Lymph % (Auto) 10.8 % [place] % (Auto) 7.8 % Eos % (Auto) 0.0 % Baso % (Auto) 0.5 % Neut # (Auto) 15.48 H (1.40-6.50) K/uL Lymph # (Auto) 2.13 (1.20-3.40) K/uL [place] # (Auto) 1.53 H (0.11-0.59) K/uL Eos # (Auto) 0.00 (0.00-0.50) K/uL Baso # (Auto) 0.09 (0.00-0.20) K/uL Immature Gran # (Auto) 0.47 H (0.01-0.20) K/uL Sodium 142 (136-145) mmol/L Potassium 4.3 (3.5-5.1) mmol/L Chloride 107 (98-107) mmol/L Carbon Dioxide 29 (21-32) mmol/L Anion Gap 6 (3-11) BUN 16 (6-23) mg/dl Creatinine 0.81 (0.6-1.4) mg/dl Est Cr Clr Drug Dosing 146.8 ml/min Est GFR ( Amer) 127.9 ml/min Est GFR (Non-Af Amer) 110.4 ml/min BUN/Creatinine Ratio 19.8 (10-20) Glucose 102 H (70-99(Fasting)) mg/dl Calcium 9.4 (8.6-10.3) mg/dl C-Reactive Protein 2.42 H (0-0.5) mg/dl
[2023-05-07] MEDS ORDERED: methylPREDNISolone 40 MG in SYRINGE 0 ML IV ONE (10:30)
--- NOTE | 2023-05-07 14:09 | Hospitalist Progress Note ---
Date of Service May 07, 2023 Assessment & Plan (1) Ulcerative colitis: Plan: This is a 42-year-old male with PMHx of ulcerative colitis on Entyvio. He was previously treated with Rinvoq, mesalamine and rowasa. Pt with worsening GI symptoms as outpatient prompted GI services to request a direct admission. Flexible sigmoidoscopy 05/04 shows loredo score 3 inflammation. Inflammation characterized by adherent blood, altered vascularity, erythema, friability and shallow ulcerations (similar to February report) Continue on Solumedrol 20 mg IV Q8H Per GI, if cont to improve anticipate d/c on pred 60 + Rinvoq 30 in next few days. If CMV negative, plan to increase Rinvoq to 45 as maintenance Continue low residue diet Daily CBC, CRP. CRP down trended to 4 today.. (2) Vitamin D deficiency: Plan: Chronic, stable, continue supplementation (3) Allergic rhinitis: Plan: Cont flonase as needed DVT ppx: teds, scds, Lines: 2 PIV CODE: Full code Dispo: From home; continues to be hospitalized due to need for IV steroid for severe UC flare. Please note the above document was generated using voice recognition software. It may contain grammatical, syntax or spelling errors. Any formal questions or concerns about the content, text or information contained within the body of this dictation should be directly addressed to the provider for clarification Admission and Anticipated Discharge Date Admission Date: May 03, 2023 Physical Exam Physical Exam: Constitutional: Alert orient x3; not in any distress. Respiratory: normal respiratory effort, lungs clear to auscultation, no wheeze, rales, rhonchi. Normal insp/exp effort, no accessory muscle use Cardiovascular: RRR, no murmur, no edema Vessels: no JVD or carotid bruit Chest: normal inspection of chest Abdomen: Soft, nontender. Bowel sounds present. Musculoskeletal: no cyanosis or clubbing, extremities motor strength 5/5 Skin: no rashes, warm and dry normal turgor Neurologic: PERRL, EOMI, accommodation nl, no face palsy, no dysarthria CN's II- XI intact bilaterally and moves all extremities Psychiatric: A+Ox3, euthymic affect Results & Data Results & Data Vital Signs (Past 12 Hours) Vital Signs Temp Pulse Resp BP Pulse Ox O2 Del Method 05/07/23 07:23 36.6 C 74 14 144/83 H 97 Room Air
--- NOTE | 2023-05-07 14:13 | Discharge Summary ---
Date of Service May 07, 2023 Admission HPI Per Admitting Provider This is a 42-year-old male with PMHx of ulcerative colitis on Entyvio. He is most recently treated with Rinvoq, mesalamine and rowasa. Pt thought treatment was working very well, and last Sunday thought he was trending towards remission, and then his symptoms started to worsen again. Complaints include nausea, loss of appetite, fatigue, abdominal cramping which began to worsen on Sunday night. Pt has had issues with watery and blackened stool, with blood noted with each bowel movement to varying degrees. He is having upwards of 10-12 BMs daily. He has been following with Dr. Farnsworth as outpatient, and was referred to the hospital for direct admission by GI for treatment with IV steroids. Currently patient is doing ok, he has abdominal pain but is comfortable. C/o a headache for which he can have a tylenol now. Admission Exam Per Admitting Provider General: awake, alert, no apparent distress Head: Normocephalic, atraumatic ENT: PERRL, EOMI, no pharyngeal exudate, mucous membranes moist Chest: Clear to auscultation, on room air, no adventitious breath sounds Cardiac: Regular rate and rhythm, no murmur, no JVD, normal peripheral pulses, good capillary refill Abdominal: NABS x 4 quadrants, soft, nondistended, +tender to palpation, no rebound or guarding Extremities: Normal inspection, no peripheral edema or erythema, calfs nontender to palpation Psych: Normal mood and affect Neuro: AAO x 3, strength intact bilaterally and rated 5/5, no motor deficits, speech is clear, no peripheral sensory deficits Principal Diagnosis Ulcerative colitis flareup Discharge Exam Constitutional: WD/WN, vitals as above, NAD, sitting up in bed, pleasant, conversing easily Respiratory: normal respiratory effort, lungs clear to auscultation, no wheeze, rales, rhonchi. Normal insp/exp effort, no accessory muscle use Cardiovascular: RRR, no murmur, no edema Vessels: no JVD or carotid bruit Chest: normal inspection of chest Abdomen: Soft, nontender. Bowel sound present. Musculoskeletal: no cyanosis or clubbing, extremities motor strength 5/5 Skin: no rashes, warm and dry normal turgor Neurologic: PERRL, EOMI, accommodation nl, no face palsy, no dysarthria CN's II- XI intact bilaterally and moves all extremities Psychiatric: A+Ox3, euthymic affect Discharge Data Allergies Allergy/AdvReac Type Severity Reaction Status Date / Time Penicillins Allergy Intermediate hives Verified 05/04/23 09:56 Consultations 05/03/23 14:01 Consult Gastroenterology Routine Procedures Performed Operation Date: 05/04/23 16:30 Actual Procedures p Colonoscopy Biopsy Cytology - Betty Mares MD Hospital Course (1) Ulcerative colitis: (2) Vitamin D deficiency: (3) Allergic rhinitis: Plan This is a 42-year-old male with PMHx of ulcerative colitis on Entyvio. He was previously treated with Rinvoq, mesalamine and rowasa. Pt with worsening GI symptoms as outpatient prompted GI services to request a direct admission. Flexible sigmoidoscopy 05/04 shows loredo score 3 inflammation. Inflammation characterized by adherent blood, altered vascularity, erythema, friability and shallow ulcerations (similar to February report) During the hospitalization, patient was treated with IV methylprednisolone 60 mg. Daily CRP were checked which down trended from 12 to 2. His hemoglobin remained stable. On the day of the discharge, he was having formed stool. He was discharged on tapering dose of prednisone Please note the above document was generated using voice recognition software. It may contain grammatical, syntax or spelling errors. Any formal questions or concerns about the content, text or information contained within the body of this dictation should be directly addressed to the provider for clarification Total Time Total Time Spent Total Time Spent (In Minutes): 45 Total Time Includes: Examination of the Patient, Discharge Planning, Medication Reconciliation, Communication With Other Providers and Other Discharge Plan Discharge Items Patient Disposition: Home - Self-Care Reason For Visit: ULCERATIVE COLITIS Discharge Diagnosis: UC flare Activity: Resume your previous activity Non-emergency contact: Primary Care Provider Call non-emergency contact if: you have any medication questions Follow-up/Referrals: Cheyenne Farnsworth MD [Physician] - (Date & Time 05/29/2023 1:20 PM Provider Cheyenne Farnsworth MD Department Gastroenterology, [facility] ) Franky Stephen MD [Primary Care Provider] - (Date & Time 05/10/2023 9:40 AM Provider Franky Stephen MD Department Located Within [facility] ) Diet: Regular Addtl Attending Provider Instructions: You were admitted to the hospital due to ulcerative colitis flareup. You are prescribed prednisone taper; please take it as recommended. Please follow-up with your primary care doctor. An appointment will be set up for you. Follow-up with GI Pending Studies at Discharge: No Stand-Alone Forms: My [facility] TripShake, Smoking Cessation Medications and DC Order Prescriptions: New prednisone 10 mg tablet See Taper PO DAILY Qty: 180 0RF Taper: Taper, Blank 60 mg DAILY for 5 Days 50 mg DAILY for 7 Days 40 mg DAILY for 7 Days 30 mg DAILY for 7 Days 20 mg DAILY for 7 Days 15 mg DAILY for 7 Days 10 mg DAILY for 7 Days 5 mg DAILY for 7 Days Continued mesalamine 4 gram/60 mL enema 4 g ID HS mesalamine 1,000 mg suppository 1,000 mg ID HS Rinvoq 30 mg tablet extended release 24 hr 30 mg PO DAILY azelastine 137 mcg (0.1 %) aerosol,spray 1 spray INTRANASAL BID PRN (Reason: Allergy Symptoms) fluticasone propionate 50 mcg/actuation spray,suspension 1 spray INTRANASAL BID PRN (Reason: Allergy Symptoms) montelukast 10 mg tablet 10 mg PO DAILY ergocalciferol (vitamin D2) 1,250 mcg (50,000 unit) capsule 50,000 unit PO WK Discharge Orders: Discharge Order (Routine); Ordered 05/07/23 Ordered By: Humberto Deng/Other Patient Handouts: Ulcerative Colitis Dc Admission Data Admit Date/Time: 05/03/23 13:59 Attending Provider: Humberto Cooley Admit Provider: Danielle Kiser Primary Care Provider: Franky Stephen Other Providers: Cheyenne Farnsworth ; Danielle Kiser ; Dai Wall Other Interventions: Discharge Summary Assessment (RN) Last Done: 05/07/23 10:03
== END 2023-05-07 11:21 | disposition home or self-care (01) | DRG 387 ==
LOC: SUATTDRO 15:24 → 3N 15:24